=== PATIENT | male | born 1985 | race Two or more races ===

== ENCOUNTER 2021-11-28 15:43 | Outpatient (REF) | payer OTHER, SELFPAY ==
[2021-11-28 16:47] LABS: Hematocrit 37.6 % (42.0-52.0); Hemoglobin 12.3 g/dl (14.0-18.0); Mean Corpuscular HGB Conc 32.7 g/dl (31.0-36.0); Mean Corpuscular Hemoglobin 31.4 pg (27.0-33.0); Mean Corpuscular Volume 95.9 fL (80.0-98.0); Mean Platelet Volume 10.5 fL (9.4-12.4); Platelet Count 236 X10*3/uL (160-400); Red Blood Count 3.92 X10*6/uL (4.60-5.80); Red Cell Distribution Width 11.7 % (11.0-16.0); White Blood Count 7.7 X10*3/uL (4.8-10.8)
[2021-11-28 16:49] LABS: Appearance Urine CLEAR; Color Urine YELLOW; Glucose Urine UA NEG (NEG); Leukocyte Esterase Urine TRACE (NEG); Nitrite Urine NEG (NEG); Specific Gravity - Urine <= 1.005 (1.005-1.025); Urine Blood NEG (NEG); Urine Ketones NEG (NEG); Urine Protein NEG (NEG-TRACE)
[2021-11-28 17:05] LABS: Alanine Aminotransferase 20 U/L (0-40); Alkaline Phosphatase 115 U/L (39-117); Anion Gap 11 (12-20); Aspartate Amino Transferase 19 U/L (5-37); Bilirubin Direct < 0.2 mg/dL (0.0-0.5); Bilirubin Total 0.3 mg/dL (0.0-1.0); Blood Urea Nitrogen 22 mg/dL (9-16); Calcium 9.2 mg/dL (8.4-10.2); Carbon Dioxide 28 mmol/L (22-29); Chloride 106 mmol/L (96-108); Cholesterol 221 mg/dL; Estimated Glomerular Filt Rate 35; Glucose Random 90 mg/dL (60-115); HDL Cholesterol 49 mg/dL; LDL Cholesterol Calculated 133 mg/dl; Potassium 5.2 mmol/L (3.3-5.1); Sodium 140 mmol/L (135-145); Triglycerides 197 mg/dL
[2021-11-28 17:14] LABS: WBC Urine 0-2 /HPF (0-4)
[2021-11-28 17:15] LABS: RBC Urine 0-2 /HPF (0); Squamous Epithelial Cell Urine TRACE /LPF
[2021-11-28 17:16] LABS: Bacteria Urine TRACE /LPF
[2021-11-28 17:27] LABS: Thyroid Stimulating Hormone 0.52 uIU/mL (0.32-4.0)
== END 2021-11-28 15:44 | disposition home or self-care (01) ==
LOC: HO.LAB 15:43
PROVIDERS: PCP Internal Medicine; Visit Provider Internal Medicine
DX: Z00.01 Encounter for general adult medical examination with abnormal findings (principal)
CPT/HCPCS: 36415; 80048; 80061; 80076; 81001; 84443; 85027

== ENCOUNTER 2023-01-12 13:23 | Outpatient (REF) | payer OTHER, SELFPAY ==
[2023-01-12 14:35] LABS: Hematocrit 33.9 % (42.0-52.0); Hemoglobin 11.4 g/dl (14.0-18.0); Mean Corpuscular HGB Conc 33.6 g/dl (31.0-36.0); Mean Corpuscular Hemoglobin 32.2 pg (27.0-33.0); Mean Corpuscular Volume 95.8 fL (80.0-98.0); Mean Platelet Volume 10.7 fL (9.4-12.4); Platelet Count 218 X10*3/uL (160-400); Red Blood Count 3.54 X10*6/uL (4.60-5.80); Red Cell Distribution Width 11.7 % (11.0-16.0); White Blood Count 7.3 X10*3/uL (4.8-10.8)
[2023-01-12 14:59] LABS: Alanine Aminotransferase 14 U/L (0-40); Albumin Level 4.1 g/dL (3.5-5.0); Alkaline Phosphatase 88 U/L (39-117); Anion Gap 12 (12-20); Aspartate Amino Transferase 20 U/L (5-37); Bilirubin Direct < 0.2 mg/dL (0.0-0.5); Bilirubin Total 0.4 mg/dL (0.0-1.0); Blood Urea Nitrogen 24 mg/dL (9-16); Carbon Dioxide 24 mmol/L (22-29); Chloride 109 mmol/L (96-108); Cholesterol 221 mg/dL; Estimated Glomerular Filt Rate 32; Glucose Random 77 mg/dL (60-115); HDL Cholesterol 46 mg/dL; LDL Cholesterol Calculated 144 mg/dl; Potassium 5.6 mmol/L (3.3-5.1); Sodium 139 mmol/L (135-145); Thyroid Stimulating Hormone 0.61 uIU/mL (0.32-4.0); Total Protein 7.1 g/dL (6.5-8.0); Triglycerides 158 mg/dL
== END 2023-01-12 13:24 | disposition home or self-care (01) ==
LOC: HO.LAB 13:23
PROVIDERS: PCP Internal Medicine; Visit Provider Internal Medicine
DX: I12.9 Hypertensive chronic kidney disease with stage 1 through stage 4 chronic kidney disease, or unspecified chronic kidney disease (principal); N18.9 Chronic kidney disease, unspecified
CPT/HCPCS: 36415; 80048; 80061; 80076; 84443; 85027

== ENCOUNTER 2024-02-25 15:01 | Outpatient (AMB) | payer OTHER, SELFPAY ==
--- NOTE | 2024-02-25 15:24 | MHC.PC.OV ---
Vital Signs 02/25/24 15:25 02/25/24 15:29 Height 5 ft 8 in Weight 162 lb 4 oz BMI 24.7 BP 160/80 H 140/70 H Blood Pressure Location Lt brachial Lt brachial Position Sitting Sitting Pulse 75 Pulse Source Pulse Oximeter Pulse Oximetry (%) 98 Oxygen Delivery Method Room Air Intake Visit Reasons: Hypertension Intake Note: Patient is here to follow up on HTN, Chronic Renal Disease. Deputy Fire Marshal Required: No Check Viewer: Not Required per policy Accompanied by: Self / Same As Patient Allergies No Known Allergies Allergy (Verified 02/27/24 07:07) Medication List - Last Reconciled 02/27/24 by Asad Scott MD amlodipine 2.5 mg PO DAILY lisinopril 10 mg PO DAILY patiromer calcium sorbitex (Veltassa) ea PO tolvaptan (polycys kidney dis) (Jynarque) 30 mg PO DAILY PRN tolvaptan (polycys kidney dis) (Jynarque) 15 mg PO DAILY PRN Tobacco use date assessed: 02/25/24 Dental Screening Dental Screen Date: 02/25/24 Did you have a dental visit in the last 12 months?: No Did you have a dental problem in the last 6 months where you did not have access to dental care?: No Was dental information given to patient?: No HPI Hypertension HPI Details 39 yr old male presents to the office to discuss his chronic medical condtions. Kidney disease has not progressed further. Continues to see the retail pharmacy technician in [place]. 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 Gets lab work done at the retail pharmacy technician office. [facility] Medical History (Updated 02/27/24 @ 07:10 by Asad Scott MD) Adult polycystic kidney disease Chronic kidney disease, stage 3 Essential hypertension Surgical History No pertinent past surgical history Family History Father Diabetes PCK (polycystic kidney disease) Mother Medical history unknown Sister PCK (polycystic kidney disease) Social History Housing: Apartment Alcohol intake: current Alcohol intake frequency: holidays/special occasions only Patient Tobacco Use Status: Former Tobacco user e-Cigarette/Vaping Use: Never Used Second Hand Smoke Exposure: Yes service: No Current occupational status: employed 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 1. Little interest or pleasure in doing things: not at all 2. Feeling down, depressed, or hopeless: not at all 3. Trouble falling or staying asleep, or sleeping too much: not at all 4. Feeling tired or having little energy: not at all 5. Poor appetite or overeating: not at all 6. Feeling bad about yourself - or that you are a failure or have let yourself or your family down: not at all 7. Trouble concentrating on things, such as reading the newspaper or watching television: not at all 8. Moving or speaking so slowly that other people could have noticed. Or the opposite - being so fidgety or restless that you have been moving around a lot more than usual: not at all 9. Thoughts that you would be better off or of hurting yourself in some way: not at all Total score: 0 Depression Screening Interpretation: Negative Depression Screening Done: Yes Source: Developed by Drs. Krunal Wang, Gabby Nolasco, Aaron Nguyen and colleagues, with an educational jhonatan from [employer] Thrive Questionnaire Date Thrive assessed: 02/25/24 I am a: Patient What is your living situation today?: I have a steady place to live Within the past 12 months, did the food you bought not last and you didn't have the money to get more?: Never true Within the past 12 months, did you worry whether your food would run out before you got money to buy more?: Never true Do you have trouble paying for medicines?: No Do you have trouble getting transportation to medical appointments?: No Do you have trouble paying your heating and electricity bill?: No Do you have trouble taking care of your child, family member or friend?: No Do you have trouble with day-to-day activities such as bathing, preparing meals, shopping, managing finances, etc.?: No Are you currently unemployed and looking for a job?: No Are you interested in more education?: No Currently or been in a relationship where the following occur: no concerns reported THRIVE Score: 0 AUDIT C Alcohol Use Questionnaire (AUDIT-C) 1. How often do you have a drink containing alcohol?: Monthly or less 2. How many drinks containing alcohol do you have on a typical day when you are drinking?: 1 or 2 Total Score: 1 SHRUTHI-7 AMB Questionnaire SHRUTHI-7 Date SHRUTHI - 7 assessed: 02/25/24 Feeling nervous, anxious, or on edge: 0 = Not at all Not being able to stop or control worryin = Not at all Worrying too much about different things: 0 = Not at all Trouble relaxin = Not at all Being so restless that it is hard to sit still: 0 = Not at all Becoming easily annoyed or irritable: 0 = Not at all Feeling afraid as if something awful might happen: 0 = Not at all Total SHRUTHI-7 score (0-4 normal; 5-9 mild; 10-14 moderate; 15-21 severe): 0 Source: Developed by Drs. Krunal Wang, Gabby Nolasco, Aaron Nguyen and colleagues, with an educational jhonatan from [employer] Physical exam (Primary Care) Vital Signs: Last Vital Signs Pulse 75 02/25/24 15:25 BP 140/70 H 02/25/24 15:29 Pulse Ox 98 02/25/24 15:25 Oxygen Delivery Method Room Air 02/25/24 15:25 Care Plan Goal for BP management: BP in range, continue medications at same dosage. BMI result Body Mass Index 24.7 Tobacco/Smoking Status: Tobacco use Status Tobacco use date assessed 02/25/24 02/25/24 15:30 Patient Tobacco Use Status Former Tobacco user 02/25/24 15:30 e-Cigarette/Vaping Use Never Used 02/25/24 15:30 PHQ-9: PHQ-9 Score PHQ-9: Total score 0 02/25/24 15:35 Depression Screening Interpretation: Negative Thrive Assessment: Date of Thrive Assessment Date Thrive assessed 02/25/24 02/25/24 15:30 Currently or been in a relationship where the following occur: no concerns reported Const General: cooperative and healthy appearing Nutritional Appearance: well nourished Orientation/consciousness: patient oriented x3 Limitations: no limitations HENMT Head: Yes normal to inspection Eyes General: appearance normal, both eyes and all related structures Neck Neck: Yes normal visual inspection Chest Chest palpation & inspection: normal palpation of entire chest wall Resp Effort & Inspection: normal respiratory effort Neuro General: patient oriented x3 Assessment and Plan Assessment & Plan (1) Adult polycystic kidney disease: Code(s): Q61.2 - Polycystic kidney, adult type Plan: Condition is at baseline. Continue follow up with retail pharmacy technician. (2) Chronic kidney disease, stage 3: Code(s): N18.30 - Chronic kidney disease, stage 3 unspecified Plan: 20 minutes spent reviewing this condition. Blood work and nephrology consult not revd. BW done in Dec 2023 shows mild worsening of renal function (3) Essential hypertension: Code(s): I10 - Essential (primary) hypertension Plan: BP is stable. Continue medications at same dosage. Medications: Refilled amlodipine 2.5 mg PO DAILY 90 tabs 1RF Coding Level of Care Code Est Pt Level 4 (08850) Diagnoses Adult polycystic kidney disease Q61.2 Chronic kidney disease, stage 3 N18.30 Essential hypertension I10
[2024-02-25 15:25] VITALS: BP 160/80; PULSE 75; O2SAT 98; BMI 24.7
[2024-02-25 15:29] VITALS: BP 140/70
== END 2024-02-25 16:33 | disposition home or self-care (01) ==
PROVIDERS: PCP Internal Medicine; Visit Provider Internal Medicine
DX: Q61.2 Polycystic kidney, adult type (principal); I12.9 Hypertensive chronic kidney disease with stage 1 through stage 4 chronic kidney disease, or unspecified chronic kidney disease; N18.30 Chronic kidney disease, stage 3 unspecified
CPT/HCPCS: 99214

== ENCOUNTER 2024-04-21 07:31 | Outpatient (REF) | payer OTHER, SELFPAY ==
[2024-04-21 11:22] LABS: Hematocrit 33.2 % (42.0-52.0); Hemoglobin 11.3 g/dl (14.0-18.0); Mean Corpuscular Hemoglobin 32.8 pg (27.0-33.0); Mean Corpuscular Volume 96.5 fL (80.0-98.0); Mean Platelet Volume 10.6 fL (9.4-12.4); Platelet Count 211 X10*3/uL (160-400); Red Blood Count 3.44 X10*6/uL (4.60-5.80); Red Cell Distribution Width 12.2 % (11.0-16.0)
[2024-04-21 11:33] LABS: Alanine Aminotransferase 11 U/L (0-40); Albumin Level 3.9 g/dL (3.5-5.0); Alkaline Phosphatase 131 U/L (39-117); Anion Gap 9 (12-20); Aspartate Amino Transferase 17 U/L (5-37); Bilirubin Direct 0.1 mg/dL (0.0-0.5); Bilirubin Total 0.3 mg/dL (0.0-1.0); Blood Urea Nitrogen 33 mg/dL (9-16); Calcium 9.1 mg/dL (8.4-10.2); Carbon Dioxide 22 mmol/L (22-29); Chloride 115 mmol/L (96-108); Cholesterol 198 mg/dL (<200); Estimated Glomerular Filt Rate 29; Glucose Random 102 mg/dL (60-115); HDL Cholesterol 40 mg/dL (>40); LDL Cholesterol Calculated 120 mg/dL (<100); Sodium 141 mmol/L (135-145); Total Protein 7.1 g/dL (6.5-8.0); Triglycerides 192 mg/dL (<150)
[2024-04-21 11:35] LABS: Appearance Urine Clear; Color Urine Yellow; Glucose Urine UA Negative (Negative); Leukocyte Esterase Urine Small (1+) (Negative); Nitrite Urine Negative (Negative); Specific Gravity - Urine <= 1.005 (1.005-1.025); UMIC TRIGGER UA YES; Urine Blood Negative (Negative); Urine Ketones Negative (Negative); Urine Protein Negative (Neg-Trace)
[2024-04-21 11:40] LABS: Thyroid Stimulating Hormone 0.59 uIU/mL (0.32-4.0)
[2024-04-21 11:48] LABS: Bacteria Urine None Seen (None Seen); Hyaline Casts Urine 0-2 /LPF (0-2); RBC Urine 0-2 /HPF (0-2); Squamous Epithelial Cell Urine 0-2 /HPF (0-2); WBC Urine 0-5 /HPF (0-5)
== END 2024-04-21 07:32 | disposition home or self-care (01) ==
LOC: HO.10HDL 07:31
PROVIDERS: Visit Provider Internal Medicine
DX: I10 Essential (primary) hypertension (principal)
CPT/HCPCS: 36415; 80048; 80061; 80076; 81001; 84443; 85027

== ENCOUNTER 2024-09-08 15:05 | Outpatient (AMB) | payer OTHER, SELFPAY ==
--- NOTE | 2024-09-08 15:20 | MHC.PC.OV ---
Vital Signs 09/08/24 15:21 Height 5 ft 8 in Weight 155 lb BMI 23.6 BP 130/74 Blood Pressure Location Lt brachial Position Sitting Pulse 60 Pulse Source Pulse Oximeter Pulse Oximetry (%) 99 Oxygen Delivery Method Room Air Intake Visit Reasons: 6mth f/u Intake Note: Patient is here to follow up on HTN, CKD. Pt decline flu shot today. Lathe Turner Required: No Eyewear Consultant: Not Required per policy Accompanied by: Self / Same As Patient Allergies No Known Allergies Allergy (Verified 09/09/24 04:34) Medication List - Last Reconciled 09/09/24 by Asad Scott MD amlodipine 2.5 mg PO DAILY lisinopril 10 mg PO DAILY patiromer calcium sorbitex (Veltassa) ea PO tolvaptan (polycys kidney dis) (Jynarque) 30 mg PO DAILY PRN tolvaptan (polycys kidney dis) (Jynarque) 15 mg PO DAILY PRN Tobacco use date assessed: 09/08/24 Dental Screening Dental Screen Date: 02/25/24 HPI 6mth f/u HPI Details 39-year-old male presents to the office for a routine visit. He has chronic kidney disease and hypertension. His lab work is done at the cytotechnologist/cytology supervisor's office and is at baseline and stable. Compliant with medications. Patient is able to function and do activities of daily living. He is able to keep a full-time job. 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 Krunal Wang, Gabby Nolasco, Aaron Nguyen and colleagues, with an educational jhonatan from [employer]. Physical exam (Primary Care) Vital Signs: Last Vital Signs Pulse 60 09/08/24 15:21 BP 130/74 09/08/24 15:21 Pulse Ox 99 09/08/24 15:21 Oxygen Delivery Method Room Air 09/08/24 15:21 BMI result Body Mass Index 23.6 Tobacco/Smoking Status: Tobacco use Status Tobacco use date assessed 09/08/24 09/08/24 15:32 Patient Tobacco Use Status Former Tobacco user 09/08/24 15:32 e-Cigarette/Vaping Use Never Used 09/08/24 15:32 Thrive Assessment: Date of Thrive Assessment Date Thrive assessed 02/25/24 09/08/24 15:32 Const General: cooperative and healthy appearing Nutritional Appearance: well nourished Orientation/consciousness: patient oriented x3 Limitations: no limitations HENMT Head: Yes normal to inspection Eyes General: appearance normal, both eyes and all related structures Neck Neck: Yes normal visual inspection Chest Chest palpation & inspection: normal palpation of entire chest wall Resp Effort & Inspection: normal respiratory effort Neuro General: patient oriented x3 Coding Level of Care Code Est Pt Level 3 (95473) Complex EM visit Add On G2211 Diagnoses Adult polycystic kidney disease Q61.2 Chronic kidney disease, stage 3 N18.30 Essential hypertension I10 Assessment & Plan Assessment & Plan (1) Adult polycystic kidney disease: Code(s): Q61.2 - Polycystic kidney, adult type Category: Medical Plan: Condition is stable. Follow-up with a cytotechnologist/cytology supervisor. Continue medications prescribed by the cytotechnologist/cytology supervisor. (2) Chronic kidney disease, stage 3: Code(s): N18.30 - Chronic kidney disease, stage 3 unspecified Category: Medical Plan: Creatinine and GFR is stable. (3) Essential hypertension: Code(s): I10 - Essential (primary) hypertension Category: Medical Plan: Blood pressure is in range. Continue medications at same dosage.
[2024-09-08 15:21] VITALS: BP 130/74; PULSE 60; O2SAT 99; BMI 23.6
== END 2024-09-08 15:54 | disposition home or self-care (01) ==
PROVIDERS: PCP Internal Medicine; Visit Provider Internal Medicine
DX: Q61.2 Polycystic kidney, adult type (principal); N18.30 Chronic kidney disease, stage 3 unspecified; I10 Essential (primary) hypertension

== ENCOUNTER → 2024-09-08 15:05 | Outpatient (BNVA) | payer OTHER, SELFPAY | PROVIDERS: PCP Internal Medicine; Visit Provider Internal Medicine ==

== ENCOUNTER 2024-12-26 14:25 | Outpatient (AMB) | payer OTHER, SELFPAY ==
--- NOTE | 2024-12-26 14:48 | MHC.OFFWIV ---
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 Patient Tobacco Use Status: Former Tobacco user Allergies No Known Allergies Allergy (Verified 12/26/24 14:52) Do you need a note to return to daycare/school/sports/work: Yes HPI HPI Comments History of Present Illness Details 39 y/o male patient who presents to the walk in clinic with c/o URI symptoms for 2 days now. Reports fevers, chills, body aches, headaches and cough. [facility] Medical History (Updated 12/26/24 @ 15:18 by Ana Rosa Silva NP) Cough Acute respiratory disease Adult polycystic kidney disease Chronic kidney disease, stage 3 Essential hypertension Surgical History No pertinent past surgical history Family History Father Diabetes PCK (polycystic kidney disease) Mother Medical history unknown Sister PCK (polycystic kidney disease) Social History Housing: Apartment Alcohol intake: current Alcohol intake frequency: holidays/special occasions only Patient Tobacco Use Status: Former Tobacco user e-Cigarette/Vaping Use: Never Used Second Hand Smoke Exposure: Yes service: No Current occupational status: employed 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 Cognitive needs: No Hearing needs: No Vision needs: No Review of Systems Const All systems reviewed & are unremarkable except as noted in HPI and below Physical Exam Vital Signs: Last Vital Signs Temp 100.6 F H 12/26/24 14:51 Pulse 80 12/26/24 14:51 BP 130/90 H 12/26/24 14:51 Pulse Ox 98 12/26/24 14:51 Oxygen Delivery Method Room Air 12/26/24 14:51 Const General: cooperative, no acute distress, ill appearing and lethargic; No comfortable Nutritional Appearance: thin Orientation/consciousness: patient oriented x3 and lethargic HEENT Head: Yes normocephalic Ears: external ears normal and TM abnormal obstructed by cerumen bilateral General nose exam: Nasal discharge present Face and sinus: Yes sinuses nontender Mouth: moist mucous membranes Throat: Yes uvula midline Resp Effort & Inspection: normal respiratory effort and able to speak in complete sentences Auscultation: clear to auscultation bilaterally, no crackles, no rales, no rhonchi and no wheezes Cardio Heart sounds: S1 normal heart sound present and S2 normal heart sound present Neuro General: patient oriented x3 Assessment & Plan Assessment & Plan (1) Acute respiratory disease: Code(s): J06.9 - Acute upper respiratory infection, unspecified Plan: Ordered SARs Ordered Cough medicine. (2) Cough: Code(s): R05.9 - Cough, unspecified Qualifiers: Cough type: acute Qualified Code(s): R05.1 - Acute cough Plan: Ordered SARs Ordered Cough medicine. Orders: Orders SARS-CoV2/FLU/RSV Today J06.9 - Acute upper respiratory infection, unspecified Medications: New acetaminophen 1,000 mg (2 x 500 mg) PO Q6H PRN 30 caps 0RF fever J06.9 - Acute upper respiratory infection, unspecified oseltamivir (Tamiflu) 75 mg PO BID 5 days 10 caps 0RF J06.9 - Acute upper respiratory infection, unspecified dextromethorphan polistirex ER (Delsym 12 hour) 10 mL PO Q12H 89 mL 0RF cough R05.9 - Cough, unspecified Coding Level of Care Code Est Pt Level 4 (30368) Diagnoses Acute respiratory disease J06.9 Acute cough R05.1 Cough type: acute Time Spent (min) 20
[2024-12-26 14:51] VITALS: BP 130/90; PULSE 80; TEMP 38.1; O2SAT 98
== END 2024-12-26 15:20 | disposition home or self-care (01) ==
PROVIDERS: PCP Internal Medicine; Visit Provider Nurse Practitioner Family
DX: J06.9 Acute upper respiratory infection, unspecified (principal); R05.1 Acute cough

== ENCOUNTER 2024-12-26 14:25 | Outpatient (REF) | payer OTHER, SELFPAY ==
--- OUTSIDE RECORDS SUMMARY | 2024-12-26 16:19 | XMS_ITS | Encounter Summary ---
Author Organization [facility] Address [address] [facility] [address] [place] [address] Phone Care Team Providers Care Private Branch Exchange Service Adviser Name Role Phone Asad Scott MD Primary Care Provider + Reason for Visit * Reason Comments Med Refill Encounter Details Date Type Department Care Team (Late Contact Info) Description 06/30/2022 Refill [facility] [address] [facility] [address] [place] [address] Buster Cordero MD [address] [phone] Social History Tobacco Use Types Packs/Day Years Used Date Smoking Tobacco: Former Cigarettes Q uit: 11/16/2012 Smokeless Tobacco: Never Comments:Smoking History Inf o:Every day Alcohol Use Standard Drinks/Week Comments Yes 0 (1 standard drink = 0.6 oz pure alcohol) Alcoholic Drinks/day: Occasional social drink Sex and Gender Information Value Date Recorded Sex Assigned at Not on file Legal Sex Male 5:19 PM EST Gender Identity Not on file Sexual Orientation Not on file documented as of this encounter Plan of Treatment Upcoming Encounters Date Type Department Care Team (Late st Contact Info) Description 04/04/2025 4:15 PM EDT Office Visit [facility] [address] [address] Buster Cordero MD [address] [phone] documented as of this encounter Visit Diagnoses Not on filedocumented in this encounter Care Teams Private Branch Exchange Service Adviser Relationship Specialty Start Date End Date Asad Scott MD [address] , [address], [place] [phone] PCP - General Internal Medicine 06/24/22 documented as of this encounter
--- OUTSIDE RECORDS SUMMARY | 2024-12-26 16:19 | XMS_ITS | Clinical Summary ---
Author Organization [facility] Address [address] [place] [phone] Phone Care Team Providers Care Electrotyper Helper Name Role Phone Asad Scott MD Primary Care Provider + Allergies No known active allergies Medications Blood Pressure Monitor kit 1 kit 1 (one) time 9 Active amLODIPine (NORVASC) 2.5 MG tabletIndications: Essential hypertension Take 1 tablet (2.5 mg total) by mouth 1 (one) time each day 90 tablet 3 2 Active lisinopril 10 MG tablet TAKE 1 TABLET BY MOUTH EVERY DAY 90 tablet 1 2 Active Patiromer Sorbitex Calcium 8.4 g pack Take 8.4 g by mouth 3 (three) times a week 90 each 3 2 Active sodium bicarbonate 650 MG tablet Take 1 tablet (650 mg total) by mouth in the morning and 1 tablet (650 mg total) at noon and 1 tablet (650 mg total) in the evening and 1 tablet (650 mg total) before bedtime. 120 tablet 11 4 02/02/20 25 Active Sodium Zirconium Cyclosilicate (Lokelma) 10 g pack Take 10 g by mouth in the morning. 90 each 1 4 01/02/20 25 Active Jynarque 30 MG tablet Take 30mg tablet along with 15mg tablet by mouth for total of 45mg daily 30 tablet 5 Active Jynarque 15 MG tablet Take 15mg tablet by mouth along with 30 mg for a total of 45 mg daily 30 tablet 5 Active Active Problems Problem Noted Date Diagnosed Date Chronic kidney disease, stage 4 (severe) 024 Stage 3b chronic kidney disease 06/24/2022 Essential hypertension 05/13/2021 Essential hypertension 01/18/2021 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 Adult polycystic kidney 01/18/2021 Stage 3a chronic kidney disease 01/18/2021 Encounters Date Type Department Care Team Description 11/22/2024 Refill [facility] [address] [address] Buster Cordero MD 10/11/2024 Telephone [facility] [address] [phone] Hillary Calloway [place] 10/11/2024 Refill [facility] [address] [address] Buster Cordero MD 10/04/2024 2:15 PM EST Office Visit [facility] [address] [phone] Buster Cordero MD Chronic kidney disease, stage 4 (severe) (HCC) (Primary Dx); Adult polycystic kidney; Essential hypertension from Last 3 Months Immunizations Name Administration Dates Next Due Influenza Split High Dose Preservative Free IM 0 07/30/2016 Family History Medical History Relation Comments Hypertension Father Kidney disease Father polycystic kidne y disease Relation Status Comments Father Alive Mother Alive Social History Tobacco Use Types Packs/Day Years [...] on file Sexual Orientation Not on file Last Filed Vital Signs Vital Sign Reading Time Taken Comments Blood Pressure 128/70 10/04/2024 2:01 PM EST Pulse 71 02/02/2024 1:57 PM EDT Temperature - - Respiratory Rate - - Oxygen Saturation 98% 02/02/2024 1:57 PM EDT Inhaled Oxygen Concentration - - Weight 68.9 kg (152 lb) 10/04/2024 2:01 PM EST Height 175.3 cm (5' 9 ) 04/30/2021 3:32 PM EDT Body Mass Index 22.45 04/30/2021 3:32 PM EDT Plan of Treatment Upcoming Encounters Date Type Department Care Team (Late st Contact Info) Description 04/04/2025 4:15 PM EDT [facility] [address] [facility] [address] [place] [address] Buster Cordero MD [address] [phone] Health Maintenance Due Date Last Done Comments Pneumococcal Vaccine: Pediat rics (0 to 5 Years) and At-Risk Patients (6 to 64 Years) (1 of 2 - PCV) 02/04/1990 Hepatitis B Vaccine (1 of 3 - 19+ 3-dose series) 02/04 Influenza Vaccine (#1) 2024 07/30/2016 Insurance [facility] Care Teams Electrotyper Helper Relationship Specialty Start Date End Date Asad Scott MD [address] , [address] [phone] PCP - General Internal Medicine 06/24/22
--- OUTSIDE RECORDS SUMMARY | 2024-12-26 16:19 | XMS_ITS | Encounter Summary ---
Author Organization [facility] Address [address] [address] Phone Care Team Providers Care Trial Judge Name Role Phone Asad Scott MD Primary Care Provider + Encounter Details Date Type Department Care Team (Latest Contact Info) Description 05/02/2024 Office Communication [facility] [address] [address] Buster Cordero MD [address] [phone] Stage 3b chronic kidney disease (HCC) (Primary Dx); Autosomal dominant polycystic kidney disease Social History Tobacco Use Types Packs/Day Years [...] on file documented as of this encounter Miscellaneous Notes * Telephone Encounter - Buster Cordero MD - 05/02/2024 2:31 PM EDT Pls call and tell he needs labs documented in this encounter Plan of Treatment Upcoming Encounters Date Type Department Care Team (Late st Contact Info) Description 04/04/2025 4:15 PM EDT Office Visit [facility] [address] [address] Buster Cordero MD [address] [phone] Scheduled Orders Name Type Priority Associated Diagnoses Orde r Schedule Renal function panel Lab Routine Stage 3b chronic kidney disease (HCC) Autosomal dominant polycystic kidney disease Expected: 05/09/2024, Expires: 06/01/2025 AST Lab Routine Stage 3b chronic kidney disease (HCC) Autosomal dominant polycystic kidney disease Expected: 05/09/2024, Expires: 06/01/2025 ALT Lab Routine Stage 3b chronic kidney disease (HCC) Autosomal dominant polycystic kidney disease Expected: 05/09/2024, Expires: 06/01/2025 Alkaline phosphatase Lab Routine Stage 3b chronic kidney disease (HCC) Autosomal dominant polycystic kidney disease Expected: 05/09/2024, Expires: 06/01/2025 Bilirubin, total and direct Lab Routine Stage 3b chronic kidney disease (HCC) Autosomal dominant polycystic kidney disease Expected: 05/09/2024, Expires: 06/01/2025 documented as of this encounter Visit Diagnoses Diagnosis Stage 3b chronic kidney disease (HCC)- Primary Autosomal dominant polycystic kidney disease documented in this encounter Care Teams Trial Judge Relationship Specialty Start Date End Date Asad Scott MD [address] [facility] [address] [place] [address] PCP - General Internal Medicine 06/24/22 documented as of this encounter
[2024-12-26 18:01] LABS: Influenza A PCR POSITIVE (Negative); Influenza B PCR NEGATIVE (Negative); Resp Syncy Virus RNA Qual PCR NEGATIVE (Negative); SARS COV2 PCR INHOUSE NEGATIVE (Negative)
== END 2024-12-26 14:26 | disposition home or self-care (01) ==
LOC: HO.LAB 14:25
PROVIDERS: PCP Internal Medicine; Visit Provider Nurse Practitioner Family
DX: J06.9 Acute upper respiratory infection, unspecified (principal); Z13.83 Encounter for screening for respiratory disorder NEC
CPT/HCPCS: 0241U

== ENCOUNTER 2025-03-09 13:38 | Outpatient (AMB) | payer OTHER, SELFPAY ==
--- NOTE | 2025-03-09 13:48 | A.OFFPC_ITS ---
Vital Signs 03/09/25 13:49 Height 5 ft 8 in Weight 150 lb 8 oz BMI 22.9 BP 102/68 Blood Pressure Location Lt brachial Position Sitting Pulse 84 Pulse Source Pulse Oximeter Temp 97.5 F Temp Source Temporal Artery Scan Pulse Oximetry (%) 99 Oxygen Delivery Method Room Air Intake Visit Reasons: 6 month f/u Intake Note: Patient is here to follow up on CKD, HTN. Cmm Programmer Required: No Electric Distribution Engineer: Not Required per policy Accompanied by: Self / Same As Patient Allergies No Known Allergies Allergy (Verified 03/09/25 14:24) Tobacco use date assessed: 03/09/25 Dental Screening Dental Screen Date: 03/09/25 Did you have a dental visit in the last 12 months?: No Did you have a dental problem in the last 6 months where you did not have access to dental care?: No Was dental information given to patient?: No HPI 6 month f/u HPI Details Returns for a six month follow up. Kidney disease is slowly progressing. Not ready for dialysis yet. Occ tingling sensation in the feet in the past week only. Able to function and do all ADL's. [facility] Medical History Cough Acute respiratory disease Adult polycystic kidney disease Chronic kidney disease, stage 3 Essential hypertension Surgical History No pertinent past surgical history Family History Father Diabetes PCK (polycystic kidney disease) Mother Medical history unknown Sister PCK (polycystic kidney disease) Social History Housing: Apartment Alcohol intake: current Alcohol intake frequency: holidays/special occasions only Patient Tobacco Use Status: Former Tobacco user e-Cigarette/Vaping Use: Never Used Second Hand Smoke Exposure: Yes service: No Current occupational status: employed 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 1. Little interest or pleasure in doing things: not at all 2. Feeling down, depressed, or hopeless: not at all 3. Trouble falling or staying asleep, or sleeping too much: not at all 4. Feeling tired or having little energy: not at all 5. Poor appetite or overeating: not at all 6. Feeling bad about yourself - or that you are a failure or have let yourself or your family down: not at all 7. Trouble concentrating on things, such as reading the newspaper or watching television: not at all 8. Moving or speaking so slowly that other people could have noticed. Or the opposite - being so fidgety or restless that you have been moving around a lot more than usual: not at all 9. Thoughts that you would be better off or of hurting yourself in some way: not at all Total score: 0 Depression Screening Interpretation: Negative Depression Screening Done: Yes Source: Developed by Drs. Krunal Wang, Gabby Nolasco, Aaron Nguyen and colleagues, with an educational jhonatan from [employer]. Thrive Questionnaire Date Thrive assessed: 03/09/25 I am a: Patient What is your living situation today?: I have a steady place to live Within the past 12 months, did the food you bought not last and you didn't have the money to get more?: Never true Within the past 12 months, did you worry whether your food would run out before you got money to buy more?: Never true Do you have trouble paying for medicines?: No Do you have trouble getting transportation to medical appointments?: No Do you have trouble paying your heating and electricity bill?: No Do you have trouble taking care of your child, family member or friend?: No Do you have trouble with day-to-day activities such as bathing, preparing meals, shopping, managing finances, etc.?: No Are you currently unemployed and looking for a job?: No Are you interested in more education?: No Please select the resources that you would like help with: None Currently or been in a relationship where the following occur: No concerns reported THRIVE Score: 0 AUDIT C Alcohol Use Questionnaire (AUDIT-C) 2. How many drinks containing alcohol do you have on a typical day when you are drinking?: 1 or 2 3. How often do you have six or more drinks on one occasion?: Less than monthly Total Score: 1 SHRUTHI-7 AMB Questionnaire SHRUTHI-7 Date SHRUTHI - 7 assessed: 03/09/25 Feeling nervous, anxious, or on edge: 0 = Not at all Not being able to stop or control worryin = Not at all Worrying too much about different things: 0 = Not at all Trouble relaxin = Not at all Being so restless that it is hard to sit still: 0 = Not at all Becoming easily annoyed or irritable: 0 = Not at all Feeling afraid as if something awful might happen: 0 = Not at all Total SHRUTHI-7 score (0-4 normal; 5-9 mild; 10-14 moderate; 15-21 severe): 0 Source: Developed by Drs. Krunal Wang, Gabby Nolasco, Aaron Nguyen and colleagues, with an educational jhonatan from [employer]. Physical exam (Primary Care) Vital Signs: Last Vital Signs Temp 97.5 F 03/09/25 13:49 Pulse 84 03/09/25 13:49 BP 102/68 03/09/25 13:49 Pulse Ox 99 03/09/25 13:49 Oxygen Delivery Method Room Air 03/09/25 13:49 Care Plan Goal for BP management: BP in range BMI result Body Mass Index 22.9 Tobacco/Smoking Status: Tobacco use Status Tobacco use date assessed 03/09/25 03/09/25 13:54 Patient Tobacco Use Status Former Tobacco user 03/09/25 13:54 e-Cigarette/Vaping Use Never Used 03/09/25 13:54 PHQ-9: PHQ-9 Score PHQ-9: Total score 0 03/09/25 13:54 Depression Screening Interpretation: Negative Thrive Assessment: Date of Thrive Assessment Date Thrive assessed 03/09/25 03/09/25 13:54 Currently or been in a relationship where the following occur: No concerns reported Const General: cooperative and healthy appearing Nutritional Appearance: well nourished Orientation/consciousness: patient oriented x3 Limitations: no limitations HENMT Head: Yes normal to inspection Eyes General: appearance normal, both eyes and all related structures Neck Neck: Yes normal visual inspection Chest Chest palpation & inspection: normal palpation of entire chest wall Resp Effort & Inspection: normal respiratory effort Neuro General: patient oriented x3 Coding Level of Care Code Est Pt Level 4 (82010) Complex EM visit Add On G2211 Diagnoses Essential hypertension I10 Chronic kidney disease, stage 3 N18.30 Assessment & Plan Assessment & Plan (1) Essential hypertension: Code(s): I10 - Essential (primary) hypertension Category: Medical Plan: Blood pressure is in range. continue meds at same dosage. (2) Chronic kidney disease, stage 3: Code(s): N18.30 - Chronic kidney disease, stage 3 unspecified Category: Medical Plan: Polycystic kidney disease. Sees the [facility] on a regular basis. Continue meds Orders: Orders Lipid Panel Today I10 - Essential (primary) hypertension, N18.30 - Chronic kidney disease, stage 3 unspecified Hemoglobin A1c Today I10 - Essential (primary) hypertension, N18.30 - Chronic kidney disease, stage 3 unspecified Basic Metabolic Panel Today I10 - Essential (primary) hypertension, N18.30 - Chronic kidney disease, stage 3 unspecified Complete Blood Count no Diff Today I10 - Essential (primary) hypertension, N18.30 - Chronic kidney disease, stage 3 unspecified Liver Panel Today I10 - Essential (primary) hypertension, N18.30 - Chronic kidney disease, stage 3 unspecified Thyroid Stimulating Hormone Today I10 - Essential (primary) hypertension, N18.30 - Chronic kidney disease, stage 3 unspecified UA and rflx microscopic Today I10 - Essential (primary) hypertension, N18.30 - Chronic kidney disease, stage 3 unspecified
[2025-03-09 13:49] VITALS: BP 102/68; PULSE 84; TEMP 36.4; O2SAT 99; BMI 22.9
--- OUTSIDE RECORDS SUMMARY | 2025-03-09 15:59 | XMS_ITS | Clinical Summary ---
Author Organization [facility] Address [address] [place] [phone] Phone Care Team Providers Care Meat Processor Name Role Phone Asad Scott MD Primary Care Provider + Allergies No known active allergies Medications Blood Pressure Monitor kit 1 kit 1 (one) time 9 Active amLODIPine (NORVASC) 2.5 MG tabletIndications :Essential hypertension Take 1 tablet (2.5 mg total) by mouth 1 (one) time each day 90 tablet 3 2 Active lisinopril 10 MG tablet TAKE 1 TABLET BY MOUTH EVERY DAY 90 tablet 1 2 Active Patiromer Sorbitex Calcium 8.4 g pack Take 8.4 g by mouth 3 (three) times a week 90 each 3 2 Active Jynarque 30 MG tablet Take 30mg tablet along with 15mg tablet (45mg total) by mouth daily. 30 tablet 4 5 Active Jynarque 15 MG tablet Take 15mg tablet along with 30mg tablet (45mg total) by mouth daily. 30 tablet 4 5 Active cholecalciferol (VITAMIN D-3) 250 MCG (36695 UT) capsule Take 1 capsule (10,000 Units total) by mouth every 7 (seven) days 12 capsule 1 5 07/13/20 25 Active Active Problems Problem Noted Date Diagnosed Date Chronic kidney disease, stage 4 (severe) 024 Stage 3b chronic kidney disease 06/24/2022 Essential hypertension 05/13/2021 Essential hypertension 01/18/2021 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 Adult polycystic kidney 01/18/2021 Stage 3a chronic kidney disease 01/18/2021 Encounters Date Type Department Care Team Description 01/31/2025 Refill [facility] [address] [place] [phone] Marcelo Naylor MD 01/26/2025 Refill [facility] [address] [place] [phone] Uzma Lam 01/26/2025 Refill [facility] [address] [phone] Marcelo Naylor MD 01/17/2025 Telephone [facility] [address] [phone] Marcelo Naylor MD 01/16/2025 Refill [facility] [place] [address] [place] [phone] Marcelo Naylor MD from Last 3 Months Immunizations Immunization Administration Dates Next Due Influenza Split High [...] Visit [facility] [address] [phone] Buster Cordero MD [address] [address] Health Maintenance Due Date Last Done Comments Hepatitis B Vaccine (1 of 3 - 19+ 3-dose series) 02/04 Pneumococcal Vaccine: Peds ( 0 to 5 Years) and At-Risk Patients (6 to 49 Years) (1 of 2 - PCV) 02/04/2003 Influenza Vaccine (Season Ended) 2025 07/30/20 16 Procedures Procedure Name Priority Date/Time Associated Diagnosis Comments BASIC METABOLIC PANEL Routine 01/19/2025 2:05 PM EST Adult polycystic kidney HEPATIC FUNCTION PANEL Routine 01/19/2025 2:05 PM EST Adult polycystic kidney PTH, INTACT Routine 01/19/2025 2:00 PM EST MAGNESIUM Routine 01/19/2025 2:00 PM EST ALT Routine 01/19/2025 2:00 PM EST AST Routine 01/19/2025 2:00 PM EST ALKALINE PHOSPHATASE Routine 01/19/2025 2:00 PM EST VITAMIN D 25 HYDROXY Routine 01/19/2025 2:00 PM EST URINE ALBUMIN / CREATININE RATIO Routine 01/19/2025 2:00 PM EST PROTEIN / CREATININE RATIO, URINE Routine 01/19/2025 2:00 PM EST BILIRUBIN, TOTAL AND DIRECT Routine 01/19/2025 2:00 PM EST CBC Routine 01/19/2025 2:00 PM EST RENAL FUNCTION PANEL Routine 01/19/2025 2:00 PM EST URINALYSIS WITH MICROSCOPIC Routine 01/19/2025 2:00 PM EST MICROSCOPIC EXAMINATION - DO NOT USE Routine 01/19/2025 2:00 PM EST from Last 3 Months Results * Hepatic Function Panel (01/19/2025 2:05 PM EST) Pathologist [facility] Total Protein 6.4 6.0 - 8.5 g/dL [facility] Albumin 4.1 4.1 - 5.1 g/dL [facility] Total Bilirubin 0.2 0.0 - 1.2 mg/dL [facility] Alkaline Phosphatase 119 44 - 121 IU/L [facility] AST (SGOT) 15 0 - 40 IU/L [facility] ALT (SGPT) 6 0 - 44 IU/L [facility] Bilirubin, Direct 0.08 0.00 - 0.40 mg/dL [facility] Blood (Blood, Venous) 01/19/2025 2:05 PM EST 01/19/2025 us Marcelo Naylor MD LAB BLOOD ORDERABLES Final Result [facility] [address] [place] [address] * (ABNORMAL) Basic Metabolic Panel (01/19/2025 2:05 PM EST) Pathologist [facility] Glucose 84 70 - 99 mg/dL [facility] BUN 41(H) 6 - 24 mg/dL [facility] Creatinine 3.16(H) 0.76 - 1.27 mg/dL [facility] eGFR CKD-EPI CR 2020 25(L) >59 mL/min/1.7 3 [facility] BUN/Creatinine Ratio 13 9 - 20 [facility] Sodium 140 134 - 144 mmol/L [facility] Potassium 5.0 3.5 - 5.2 mmol/L [facility] Chloride 107(H) 96 - 106 mmol/L [facility] Bicarbonate (CO2) 16(L) 20 - 29 mmol/L [facility] Calcium 8.7 8.7 - 10.2 mg/dL [facility] Blood (Blood, Venous) 01/19/2025 2:05 PM EST 01/19/2025 us Marcelo Naylor MD LAB BLOOD ORDERABLES Final Result [facility] [address] [place] [address] * Microscopic Examination (01/19/2025 2:00 PM EST) WBC, Urine None seen 0 - 5 /hpf [facility] RBC, Urine None seen 0 - 2 /hpf [facility] Squamous Epithelial, Urine None seen 0 - 10 /hpf [facility] Casts None seen None seen /lpf [facility] Bacteria, Urine None seen None seen/Few [facility] 01/19/2025 2:00 PM EST 01/19/2025 Buster Cordero MD LAB MICROBIOLOGY - GENERAL OR DERABLES Final Result Performing Organization Address [facility] de Phone Number [facility] [address] [place] [address] * Protein, Total, Random Urine w/Creatinine (Protein/Creat Ratio) (01/19/2025 2:00 PM EST) Creatinine, Ur 42.8 Not Estab. mg/dL [facility] Protein, Ur 5.9 Not Estab. mg/dL [facility] Urine Protein/Creatin ine Ratio 138 0 - 200 mg/g creat [facility] 01/19/2025 2:00 PM EST 01/19/2025 Buster Cordero MD LAB URINE ORDERABLES Final Re sult Performing Organization Address [facility] de Phone Number [facility] [address] [place] [address] * (ABNORMAL) Urine Albumin / Creatinine Ratio (01/19/2025 2:00 PM EST) Albumin, Urine 22.6 Not Estab. ug/mL [facility] Albumin/Creatin ine Ratio 53(H) 0 - 29 mg/g creat [facility] Comment: ? Normal: ?0 - ??29 ? Moderately increased: 30 - 300 ? Severely increased: ? >300 01/19/2025 2:00 PM EST 01/19/2025 Buster Cordero MD LAB URINE ORDERABLES Final Re sult Performing Organization Address [facility] Co de Phone Number [facility] [address] [place] [address] * (ABNORMAL) Vitamin D 25 Hydroxy (01/19/2025 2:00 PM EST) Vitamin D, 25-OH, Total 12.0(L) 30.0 - 100.0 ng/mL [facility] Comment: Vitamin D deficiency has been defined by the [place] of [employer] and an Endocrine Society practice guideline as a level of serum 25-OH vitamin D less than 20 ng/mL (1,2). The Endocrine Society went on to further define vitamin D insufficiency as a level between 21 and 29 ng/mL (2). 1. IOM ([place] of [employer]). 2010. Dietary reference ?? intakes for calcium and D. [place]: The ?? National Academies Press. 2. Libia MF, Narayan NC, Mak KELLY, et al. ?? Evaluation, treatment, and prevention of vitamin D ?? deficiency: an Endocrine Society clinical practice ?? guideline. JCEM. 2010; 96(7):1911-30. 01/19/2025 2:00 PM EST 01/19/2025 Buster Cordero MD LAB BLOOD ORDERABLES Final Re sult Performing Organization Address City/[facility]/ZIP Co de Phone Number [facility] [address] [place] [address] * Urinalysis with microscopic (01/19/2025 2:00 PM EST) Specific [place], Urine 1.007 1.005 - 1.030 [facility] pH Urine 6.5 5.0 - 7.5 [facility] Color, Urine Yellow Yellow [facility] Appearance Urine Clear Clear [facility] WBC Esterase Urine Negative Negative [facility] [phone] Protein, Ur Negative Negative/Tra ce [facility] Glucose, Ur Negative Negative [facility] [phone] Ketones, Urine Negative Negative [facility] Blood Urine Negative Negative [facility] Bilirubin Urine Negative Negative [facility] [phone] Urobilinogen Urine 0.2 0.2 - 1.0 mg/dL [facility] Nitrite, Urine Negative Negative [facility] Microscopic Examination Comment [facility] Comment:Microscopic follows if indicated. Other Microsc. Observations See below: [facility] Comment:Microscopic was charlie cated and was performed. 01/19/2025 2:00 PM EST 01/19/2025 us Buster Cordero MD LAB URINE ORDERABLES Final Re sult [facility] [address] [place] [address] * (ABNORMAL) CBC (01/19/2025 2:00 PM EST) WBC 5.9 3.4 - 10.8 x10E3/uL [facility] RBC 3.27(L) 4.14 - 5.80 x10E6/uL [facility] Hemoglobin 10.5(L) 13.0 - 17.7 g/dL [facility] Hematocrit 31.5(L) 37.5 - 51.0 % [facility] MCV 96 79 - 97 fL [facility] MCH 32.1 26.6 - 33.0 pg [facility] MCHC 33.3 31.5 - 35.7 g/dL [facility] RDW 12.4 11.6 - 15.4 % [facility] Platelets 207 150 - 450 x10E3/uL [facility] 01/19/2025 2:00 PM EST 01/19/2025 Buster Cordero MD LAB BLOOD ORDERABLES Final Re sult Performing Organization Address City/[facility]/ZIP Co de Phone Number [facility] [address] [place] [address] * Bilirubin, total and direct (01/19/2025 2:00 PM EST) Total Bilirubin <0.2 0.0 - 1.2 mg/dL [facility] Bilirubin, Direct <0.08 0.00 - 0.40 mg/dL [facility] Bilirubin, Indirect <0.12 0.10 - 0.80 mg/dL [facility] 01/19/2025 2:00 PM EST 01/19/2025 Buster Cordero MD LAB BLOOD ORDERABLES Final Re sult Performing Organization Address City/[facility]/ZIP Co de Phone Number [facility] [address] [place] [address] * ALT (01/19/2025 2:00 PM EST) ALT (SGPT) 9 0 - 44 IU/L [facility] 01/19/2025 2:00 PM EST 01/19/2025 Buster Cordero MD LAB BLOOD ORDERABLES Final Re sult Performing Organization Address [facility]/ZIP Co de Phone Number [facility] [address] [place] [address] * AST (01/19/2025 2:00 PM EST) AST (SGOT) 14 0 - 40 IU/L [facility] 01/19/2025 2:00 PM EST 01/19/2025 Buster Cordero MD LAB BLOOD ORDERABLES Final Re sult Performing Organization Address [facility] Co de Phone Number [facility] [address] [place] [address] * Alkaline phosphatase (01/19/2025 2:00 PM EST) Alkaline Phosphatase 121 44 - 121 IU/L [facility] 01/19/2025 2:00 PM EST 01/19/2025 Buster Cordero MD LAB BLOOD ORDERABLES Final Re sult Performing Organization Address City/[facility]/ZIP Co de Phone Number [facility] [address] [place] [address] * (ABNORMAL) PTH, Intact (01/19/2025 2:00 PM EST) PTH 273(H) 15 - 65 pg/mL [facility] 01/19/2025 2:00 PM EST 01/19/2025 us Buster Cordero MD LAB BLOOD ORDERABLES Final Re sult Performing Organization Address City/[facility]/ZIP Co de Phone Number [facility] [address] [place] [address] * Magnesium (01/19/2025 2:00 PM EST) Pathologist [facility] Magnesium 1.8 1.6 - 2.3 mg/dL [facility] 01/19/2025 2:00 PM EST 01/19/2025 us Buster Cordero MD LAB BLOOD ORDERABLES Final Re sult Performing Organization Address [facility] Co de Phone Number [facility] [address] [place] [address] * (ABNORMAL) Renal Function Panel (01/19/2025 2:00 PM EST) Pathologist [facility] Glucose 85 70 - 99 mg/dL [facility] BUN 41(H) 6 - 24 mg/dL [facility] Creatinine 3.32(H) 0.76 - 1.27 mg/dL [facility] eGFR CKD-EPI CR 2020 23(L) >59 mL/min/1.7 3 [facility] BUN/Creatinine Ratio 12 9 - 20 [facility] Sodium 142 134 - 144 mmol/L [facility] Potassium 5.2 3.5 - 5.2 mmol/L [facility] Chloride 108(H) 96 - 106 mmol/L [facility] Bicarbonate (CO2) 19(L) 20 - 29 mmol/L [facility] Calcium 8.5(L) 8.7 - 10.2 mg/dL [facility] Albumin 4.0(L) 4.1 - 5.1 g/dL [facility] Phosphorus 3.2 2.8 - 4.1 mg/dL [facility] 01/19/2025 2:00 PM EST 01/19/2025 Buster Cordero MD LAB BLOOD ORDERABLES Final Re sult [facility] [address] [place] [address] from Last 3 Months Insurance [facility] Care Teams Meat Processor Relationship Specialty Start Date End Date Asad Scott MD [address] [facility] [place] [address] PCP - General Internal Medicine 06/24/22
--- OUTSIDE RECORDS SUMMARY | 2025-03-09 15:59 | XMS_ITS | Encounter Summary ---
Author Organization [facility] Address [address] [address] Phone Care Team Providers Care Compilation Clerk Name Role Phone Asad Scott MD Primary Care Provider + Encounter Details Date Type Department Care Team (Latest Contact Info) Description 05/02/2024 Office Communication [facility] [address] [address] Buster Cordero MD [address] [phone] Stage 3b chronic kidney disease (HCC) (Primary [...] Visit [facility] [address] [phone] Buster Cordero MD [address] [phone] Scheduled Orders Name Type Priority Associated Diagnoses [...] disease documented in this encounter Care Teams Compilation Clerk Relationship Specialty Start Date End Date Asad Scott MD [address] [facility] [address] [place] [address] PCP - General Internal Medicine 06/24/22 documented as of this encounter
--- OUTSIDE RECORDS SUMMARY | 2025-03-09 15:59 | XMS_ITS | Encounter Summary ---
Author Organization [facility] Address [address] [facility] [address] [place] [address] Phone Care Team Providers Care Custom Feed Mill Operator Helper Name Role Phone Asad Scott MD Primary Care Provider + Reason for Visit * Reason Comments Med Refill Encounter Details Date Type Department Care Team (Late Contact Info) Description 06/30/2022 Refill [facility] [address] [facility] [address] [place] [address] Buster Cordero MD [address] [phone] Social History Tobacco Use Types [...] [facility] [address] [phone] Buster Cordero MD [address] [phone] documented as of this encounter Visit Diagnoses Not on filedocumented in this encounter Care Teams Custom Feed Mill Operator Helper Relationship Specialty Start Date End Date Asad Scott MD [address] , [address], [place] [phone] PCP - General Internal Medicine 06/24/22 documented as of this encounter
--- OUTSIDE RECORDS SUMMARY | 2025-03-09 15:59 | XMS_ITS | Encounter Summary ---
Author Organization [facility] Address [address] [address] Phone Care Team Providers Care Allergist Immunologist Name Role Phone Asad Scott MD Primary Care Provider + Reason for Visit * Reason Comments Med Refill Encounter Details Date Type Department Care Team (Late Contact Info) Description 01/31/2025 Refill [facility] [address] [phone] Marcelo Naylor MD [facility] [address] [address] Social History Tobacco Use Types [...] EDT Office Visit [facility] [address] [phone] Buster Cordero MD [address] [phone] documented as of this encounter Visit Diagnoses Not on filedocumented in this encounter Care Teams Allergist Immunologist Relationship Specialty Start Date End Date Asad Scott MD [address] [address] PCP - General Internal Medicine 06/24/22 documented as of this encounter
== END 2025-03-09 14:17 | disposition home or self-care (01) ==
LOC: HO.HMCH 13:39
PROVIDERS: PCP Internal Medicine; Visit Provider Internal Medicine
DX: I10 Essential (primary) hypertension (principal); N18.30 Chronic kidney disease, stage 3 unspecified

== ENCOUNTER → 2025-03-09 13:38 | Outpatient (BNVA) | payer OTHER, SELFPAY | PROVIDERS: PCP Internal Medicine; Visit Provider Internal Medicine | DX: Z13.89 Encounter for screening for other disorder (principal) ==

== ENCOUNTER 2025-03-29 08:00 | Outpatient (REF) | payer OTHER, SELFPAY ==
--- OUTSIDE RECORDS SUMMARY | 2025-03-29 08:04 | XMS_ITS | Encounter Summary ---
Author Organization [facility] Address 100 [facility] [address] [place] [address] Phone Care Team Providers Care Disability Services Coordinator Name Role Phone Asad Scott MD Primary Care Provider + Reason for Visit * Reason Comments Med Refill Encounter Details Date Type Department Care Team (Late Contact Info) Description 06/30/2022 Refill [facility] 100 [address] CABELLO [facility] [address] [place] [address] Buster Cordero MD [address] [phone] Social History Tobacco Use Types [...] Visit [facility] [address] [phone] Roxana Reveles ARNP [address] [address] documented as of this encounter Visit Diagnoses Not on filedocumented in this encounter Care Teams Disability Services Coordinator Relationship Specialty Start Date End Date Asad Scott MD [address] , [address], [place] [phone] PCP - General Internal Medicine 06/24/22 documented as of this encounter
--- OUTSIDE RECORDS SUMMARY | 2025-03-29 08:04 | XMS_ITS | Encounter Summary ---
Author Organization [facility] Address [address] [address] Phone Care Team Providers Care Employment Supervisor Name Role Phone Asad Scott MD Primary Care Provider + Reason for Visit * Reason Comments Med Refill Encounter Details Date Type Department Care Team (Late Contact Info) Description 01/31/2025 Refill [facility] [address] [phone] Marcelo Naylor MD [address] [address] Social History Tobacco Use Types [...] EDT Office Visit [facility] [address] [phone] Roxana Reveles ARNP [address] [address] documented as of this encounter Visit Diagnoses Not on filedocumented in this encounter Care Teams Employment Supervisor Relationship Specialty Start Date End Date Asad Scott MD [address] [address] PCP - General Internal Medicine 06/24/22 documented as of this encounter
--- OUTSIDE RECORDS SUMMARY | 2025-03-29 08:04 | XMS_ITS | Clinical Summary ---
Author Organization [facility] Address [address] [place] [phone] Phone Care Team Providers Care Associate Professor Of Management Name Role Phone Asad Scott MD Primary [...] 5 Active cholecalciferol (VITAMIN D-3) 250 MCG (79585 UT) capsule Take 1 capsule (10,000 Units [...] 01/31/2025 Refill [facility] [address] [place] [phone] Marcelo Naylor MD 01/26/2025 Refill [facility] [address] [place] [phone] Uzma Lam 01/26/2025 Refill [facility] of [address] [phone] Marcelo Naylor MD 01/17/2025 Telephone [facility] [address] [phone] Marcelo Naylor MD 01/16/2025 Refill [facility] [address] [place] [place] [phone] Marcelo Naylor MD from Last 3 Months [...] Visit [facility] [address] [phone] Abdirizak RoxanaJENNI edmondson [address] [address] Health Maintenance Due Date Last [...] Function Panel (01/19/2025 2:05 PM EST) Pathologist [facility] Total Protein 6.4 6.0 - 8.5 g/dL [facility] Albumin 4.1 4.1 - 5.1 g/dL [facility] Total Bilirubin 0.2 0.0 - 1.2 mg/dL [facility] Alkaline Phosphatase 119 44 - 121 IU/L [facility] AST (SGOT) 15 0 - 40 IU/L [facility] ALT (SGPT) 6 0 - 44 IU/L [facility] Bilirubin, Direct 0.08 0.00 - 0.40 mg/dL [facility] Blood (Blood, Venous) 01/19/2025 2:05 PM EST 01/19/2025 us Marcelo Naylor MD LAB BLOOD ORDERABLES Final Result [facility] [address] [place] [address] * (ABNORMAL) Basic Metabolic Panel (01/19/2025 2:05 PM EST) Pathologist [facility] Glucose 84 70 - 99 mg/dL [facility] BUN 41(H) 6 - 24 mg/dL [facility] Creatinine 3.16(H) 0.76 - 1.27 mg/dL [facility] eGFR CKD-EPI CR 2020 25(L) >59 mL/min/1.7 3 [facility] BUN/Creatinine Ratio 13 9 - 20 [facility] Sodium 140 134 - 144 mmol/L [facility] Potassium 5.0 3.5 - 5.2 mmol/L [facility] Chloride 107(H) 96 - 106 mmol/L [facility] Bicarbonate (CO2) 16(L) 20 - 29 mmol/L [facility] Calcium 8.7 8.7 - 10.2 mg/dL [facility] Blood (Blood, Venous) 01/19/2025 2:05 PM EST 01/19/2025 us Marcelo Naylor MD LAB BLOOD ORDERABLES Final Result [facility] [address] [place] [address] * Microscopic Examination (01/19/2025 2:00 PM EST) WBC, Urine None seen 0 - 5 /hpf [facility] RBC, Urine None seen 0 - 2 /hpf [facility] Squamous Epithelial, Urine None seen 0 - 10 /hpf [facility] Casts None seen None seen /lpf [facility] Bacteria, Urine None seen None seen/Few [facility] 01/19/2025 2:00 PM EST 01/19/2025 Buster Cordero MD LAB MICROBIOLOGY - GENERAL OR DERABLES Final Result Performing Organization Address [facility] de Phone Number [facility] [address] [place] [address] * Protein, Total, Random Urine w/Creatinine (Protein/Creat Ratio) (01/19/2025 2:00 PM EST) Creatinine, Ur 42.8 Not Estab. mg/dL [facility] Protein, Ur 5.9 Not Estab. mg/dL [facility] Urine Protein/Creatin ine Ratio 138 0 - 200 mg/g creat [facility] 01/19/2025 2:00 PM EST 01/19/2025 Buster Cordero MD LAB URINE ORDERABLES Final Re sult Performing Organization Address [facility] [address] [facility] de Phone Number [facility] [address] [place] [address] * (ABNORMAL) Urine Albumin / Creatinine Ratio (01/19/2025 2:00 PM EST) Albumin, Urine 22.6 Not Estab. ug/mL [facility] Albumin/Creatin ine Ratio 53(H) 0 - 29 mg/g creat [facility] Comment: ? Normal: ?0 - ??29 ? Moderately increased: 30 - 300 ? Severely increased: ? >300 01/19/2025 2:00 PM EST 01/19/2025 Buster Cordero MD LAB URINE ORDERABLES Final Re sult Performing Organization Address [facility] [address] [facility] Co de Phone Number [facility] [address] [place] [address] * (ABNORMAL) Vitamin D 25 Hydroxy (01/19/2025 2:00 PM EST) Vitamin D, 25-OH, Total 12.0(L) 30.0 - 100.0 ng/mL [facility] Comment: Vitamin D deficiency has been defined by the [place] of Medicine and an Endocrine Society practice guideline as a level of serum 25-OH vitamin D less than 20 ng/mL (1,2). The Endocrine Society went on to further define vitamin D insufficiency as a level between 21 and 29 ng/mL (2). 1. IOM ([place] of Medicine). 2010. Dietary reference ?? intakes [...] ORDERABLES Final Re sult Performing Organization Address City/[facility] [address]/ZIP Co de Phone Number [facility] [address] [place] [address] * Urinalysis with microscopic (01/19/2025 2:00 PM EST) Specific [place]es, Urine 1.007 1.005 - 1.030 [facility] pH Urine 6.5 5.0 - 7.5 [facility] Color, Urine Yellow Yellow [facility] Appearance Urine Clear Clear [facility] WBC Esterase Urine Negative Negative [facility] Protein, Ur Negative Negative/Tra ce [facility] Glucose, Ur Negative Negative [facility] [phone] Ketones, Urine Negative Negative [facility] Blood Urine Negative Negative [facility] Bilirubin Urine Negative Negative [facility] Urobilinogen Urine 0.2 0.2 - 1.0 mg/dL [facility] Nitrite, Urine Negative Negative [facility] Microscopic Examination Comment [facility] Comment:Microscopic follows if indicated. Other Microsc. Observations See below: [facility] Comment:Microscopic was charlie cated and was performed. 01/19/2025 2:00 PM EST 01/19/2025 us Buster Cordero MD LAB URINE ORDERABLES Final Re sult [facility] [address] [place] [address] * (ABNORMAL) CBC (01/19/2025 2:00 PM EST) WBC 5.9 3.4 - 10.8 x10E3/uL [facility] RBC 3.27(L) 4.14 - 5.80 x10E6/uL [facility] Hemoglobin 10.5(L) 13.0 - 17.7 g/dL [facility] Hematocrit 31.5(L) 37.5 - 51.0 % [facility] MCV 96 79 - 97 fL [facility] MCH 32.1 26.6 - 33.0 pg [facility] MCHC 33.3 31.5 - 35.7 g/dL [facility] RDW 12.4 11.6 - 15.4 % [facility] Platelets 207 150 - 450 x10E3/uL [facility] 01/19/2025 2:00 PM EST 01/19/2025 Buster Cordero MD LAB BLOOD ORDERABLES Final Re sult Performing Organization Address City/[facility] [address]/ZIP Co de Phone Number [facility] [address] [place] [address] * Bilirubin, total and direct (01/19/2025 2:00 PM EST) Total Bilirubin <0.2 0.0 - 1.2 mg/dL [facility] Bilirubin, Direct <0.08 0.00 - 0.40 mg/dL [facility] Bilirubin, Indirect <0.12 0.10 - 0.80 mg/dL [facility] 01/19/2025 2:00 PM EST 01/19/2025 Buster Cordero MD LAB BLOOD ORDERABLES Final Re sult Performing Organization Address City/[facility] [address]/ZIP Co de Phone Number [facility] [address] [place] [address] * ALT (01/19/2025 2:00 PM EST) ALT (SGPT) 9 0 - 44 IU/L [facility] 01/19/2025 2:00 PM EST 01/19/2025 Buster Cordero MD LAB BLOOD ORDERABLES Final Re sult Performing Organization Address [facility] [address]/ZIP Co de Phone Number [facility] [address] [place] [address] * AST (01/19/2025 2:00 PM EST) AST (SGOT) 14 0 - 40 IU/L [facility] 01/19/2025 2:00 PM EST 01/19/2025 Buster Cordero MD LAB BLOOD ORDERABLES Final Re sult Performing Organization Address [facility] [address]/[facility] Co de Phone Number [facility] [address] [place] [address] * Alkaline phosphatase (01/19/2025 2:00 PM EST) Alkaline Phosphatase 121 44 - 121 IU/L [facility] 01/19/2025 2:00 PM EST 01/19/2025 Buster Cordero MD LAB BLOOD ORDERABLES Final Re sult Performing Organization Address City/[facility] [address]/ZIP Co de Phone Number [facility] [address] [place] [address] * (ABNORMAL) PTH, Intact (01/19/2025 2:00 PM EST) PTH 273(H) 15 - 65 pg/mL [facility] 01/19/2025 2:00 PM EST 01/19/2025 us Buster Cordero MD LAB BLOOD ORDERABLES Final Re sult Performing Organization Address City/[facility] [address]/ZIP Co de Phone Number [facility] [address] [place] [address] * Magnesium (01/19/2025 2:00 PM EST) Pathologist [facility] Magnesium 1.8 1.6 - 2.3 mg/dL [facility] 01/19/2025 2:00 PM EST 01/19/2025 us Buster Cordero MD LAB BLOOD ORDERABLES Final Re sult Performing Organization Address [facility] [address] [facility] Co de Phone Number [facility] [address] [place] [address] * (ABNORMAL) Renal Function Panel (01/19/2025 2:00 PM EST) Pathologist [facility] Glucose 85 70 - 99 mg/dL [facility] BUN 41(H) 6 - 24 mg/dL [facility] Creatinine 3.32(H) 0.76 - 1.27 mg/dL [facility] eGFR CKD-EPI CR 2020 23(L) >59 mL/min/1.7 3 [facility] BUN/Creatinine Ratio 12 9 - 20 [facility] Sodium 142 134 - 144 mmol/L [facility] Potassium 5.2 3.5 - 5.2 mmol/L [facility] Chloride 108(H) 96 - 106 mmol/L [facility] Bicarbonate (CO2) 19(L) 20 - 29 mmol/L [facility] Calcium 8.5(L) 8.7 - 10.2 mg/dL [facility] Albumin 4.0(L) 4.1 - 5.1 g/dL [facility] Phosphorus 3.2 2.8 - 4.1 mg/dL [facility] 01/19/2025 2:00 PM EST 01/19/2025 Buster Cordero MD LAB BLOOD ORDERABLES Final Re sult [facility] [address] [place] [address] from Last 3 Months Insurance [facility] Care Teams Associate Professor Of Management Relationship Specialty Start Date End Date Asad Scott MD [address] [place] [facility] [address] PCP - General Internal Medicine 06/24/22
--- OUTSIDE RECORDS SUMMARY | 2025-03-29 08:04 | XMS_ITS | Encounter Summary ---
Author Organization [facility] Address [address] [address] Phone Care Team Providers Care Staff Pharmacist Name Role Phone Asad Scott MD Primary Care Provider + Encounter Details Date Type Department Care Team (Latest Contact Info) Description 05/02/2024 Office Communication [facility] [address] [address] Buster Cordero MD [address] [phone] Stage 3b chronic kidney disease (HCC) (Primary [...] Visit [facility] [address] [phone] Roxana Reveles ARNP [address] [address] Scheduled Orders Name Type Priority Associated Diagnoses [...] disease documented in this encounter Care Teams Staff Pharmacist Relationship Specialty Start Date End Date Asad Scott MD [address] [facility] [address] [place] [address] PCP - General Internal Medicine 06/24/22 documented as of this encounter
[2025-03-29 09:59] LABS: Appearance Urine Clear; Color Urine Yellow; Glucose Urine UA Negative (Negative); Leukocyte Esterase Urine Small (1+) (Negative); Nitrite Urine Negative (Negative); Specific Gravity - Urine <= 1.005 (1.005-1.025); UMIC TRIGGER UA YES; Urine Blood Negative (Negative); Urine Ketones Negative (Negative); Urine Protein Negative (Neg-Trace)
[2025-03-29 10:01] LABS: Hematocrit 33.9 % (42.0-52.0); Hemoglobin 11.3 g/dl (14.0-18.0); Mean Corpuscular HGB Conc 33.3 g/dl (31.0-36.0); Mean Corpuscular Hemoglobin 31.8 pg (27.0-33.0); Mean Corpuscular Volume 95.5 fL (80.0-98.0); Mean Platelet Volume 10.2 fL (9.4-12.4); Platelet Count 237 X10*3/uL (160-400); Red Blood Count 3.55 X10*6/uL (4.60-5.80); Red Cell Distribution Width 12.5 % (11.0-16.0); White Blood Count 6.1 X10*3/uL (4.8-10.8)
[2025-03-29 10:05] LABS: Bacteria Urine None Seen (None Seen); Hyaline Casts Urine 0-2 /LPF (0-2); RBC Urine 0-2 /HPF (0-2); Squamous Epithelial Cell Urine 0-2 /HPF (0-2)
[2025-03-29 10:16] LABS: Estimated Average Glucose 108 mg/dL; Hemoglobin A1c % 5.4 % (<6.0); Total Hemoglobin (HGBA1C) 2967.0763 umol/L
[2025-03-29 10:40] LABS: Alanine Aminotransferase 15 U/L (0-40); Albumin Level 3.9 g/dL (3.5-5.0); Alkaline Phosphatase 138 U/L (39-117); Anion Gap 15 (12-20); Aspartate Amino Transferase 20 U/L (5-37); Bilirubin Direct 0.1 mg/dL (0.0-0.5); Bilirubin Total 0.4 mg/dL (0.0-1.0); Blood Urea Nitrogen 47 mg/dL (9-16); Calcium 8.4 mg/dL (8.4-10.2); Carbon Dioxide 19 mmol/L (22-29); Chloride 113 mmol/L (96-108); Cholesterol 211 mg/dL (<200); Estimated Glomerular Filt Rate 22; Glucose Random 100 mg/dL (60-115); HDL Cholesterol 48 mg/dL (>40); LDL Cholesterol Calculated 128 mg/dL (<100); Potassium 5.6 mmol/L (3.3-5.1); Sodium 141 mmol/L (135-145); Total Protein 7.2 g/dL (6.5-8.0); Triglycerides 176 mg/dL (<150)
== END 2025-03-29 08:01 | disposition home or self-care (01) ==
LOC: HO.10HDL 08:00
PROVIDERS: Visit Provider Internal Medicine
DX: I10 Essential (primary) hypertension (principal); N18.30 Chronic kidney disease, stage 3 unspecified; Z13.1 Encounter for screening for diabetes mellitus
CPT/HCPCS: 36415; 80048; 80061; 80076; 81001; 83036; 84443; 85027

== ENCOUNTER 2025-04-11 07:45 | Outpatient (REF) | payer OTHER, SELFPAY ==
--- OUTSIDE RECORDS SUMMARY | 2025-04-11 07:48 | XMS_ITS | Clinical Summary ---
Author Organization [facility] Address [address] [address] Phone Care Team Providers Care Process Development Engineer Name Role Phone Asad Scott MD Primary [...] EVERY DAY 90 tablet 1 2 Active Jynarque 30 MG tablet Take 30mg tablet along with 15mg tablet (45mg total) by mouth daily. 30 tablet 4 5 Active Jynarque 15 MG tablet Take 15mg tablet along with 30mg tablet (45mg total) by mouth daily. 30 tablet 4 5 Active cholecalciferol (VITAMIN D-3) 250 MCG (17813 UT) capsule Take 1 capsule (10,000 Units total) by mouth every 7 (seven) days 12 capsule 1 5 07/13/20 25 Active Patiromer Sorbitex Calcium 8.4 g packIndications:H yperkalemia Take 8.4 g by mouth 3 (three) times a week 36 each 3 5 Active Patiromer Sorbitex Calcium 8.4 g pack Take 8.4 g by mouth 3 (three) times a week 90 each 3 2 04/04/20 25 Discontinu ed(Reorder (does not appear on AVS)) Active Problems Problem Noted Date Diagnosed Date Hyperkalemia 04/04/2025 Chronic kidney disease, stage 4 (severe) 024 Stage 3b chronic kidney disease 06/24/2022 Essential hypertension 05/13/2021 Essential hypertension 01/18/2021 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 Adult polycystic kidney 01/18/2021 Stage 3a chronic kidney disease 01/18/2021 Encounters Date Type Department Care Team Description 04/07/2025 Orders Only [facility] [address] [phone] Marcelo Naylor MD Adult polycystic kidney 04/04/2025 4:15 PM EDT Office Visit [facility] [address] [phone] Roxana Reveles ARNP Stage 3b chronic kidney disease (HCC) (Primary Dx); Adult polycystic kidney; Hyperkalemia; Essential hypertension 01/31/2025 Refill [facility] [address] [phone] Marcelo Naylor MD 01/26/2025 Refill [facility] [address] [phone] Uzma Lam 01/26/2025 Refill [facility] [address] [phone] Marcelo Naylor MD 01/17/2025 Telephone [facility] [address] [phone] Marcelo Naylor MD 01/16/2025 Refill [facility] [place] [address] [facility] [address] [place] [address] Marcelo Naylor MD from Last 3 Months [...] Sign Reading Time Taken Comments Blood Pressure 122/80 04/04/2025 4:29 PM EDT Pulse 66 04/04/2025 4:13 PM EDT Temperature - - Respiratory Rate - - Oxygen Saturation 98% 04/04/2025 4:13 PM EDT Inhaled Oxygen Concentration - - Weight 70.3 kg (155 lb) 04/04/2025 4:13 PM EDT Height 175.3 cm (5' 9 ) 04/30/2021 3:32 PM EDT Body Mass Index 22.89 04/30/2021 3:32 PM EDT Plan of Treatment Upcoming Encounters Date Type Department Care Team (Late st Contact Info) Description 07/24/2025 4:00 PM EDT Office Visit [facility] [address] [phone] Buster Cordero MD [address] [phone] Health Maintenance Due Date Last Done Comments Hepatitis B Vaccine (1 of 3 - 19+ 3-dose series) 02/04 Pneumococcal Vaccine: Peds ( 0 to 5 Years) and At-Risk Patients (6 to 49 Years) (1 of 2 - PCV) 02/04/2003 Influenza Vaccine (Season Ended) 2025 07/30/20 16 Procedures Procedure Name Priority Date/Time Associated Diagnosis Comments EXT RESULT ENTRY Routine 03/29/2025 BASIC METABOLIC PANEL Routine 01/19/2025 2:05 PM [...] EST from Last 3 Months Results * (ABNORMAL) EXT RESULT ENTRY (03/29/2025) Hemoglobin 11.3(A) 13.5 - 17.5 Hematocrit 33.9(A) 41.0 - 53.0 Platelets 237 150 - 399 10*3/UL Sodium 141 137 - 147 Potassium 5.6(A) 3.4 - 5.5 Carbon Dioxide 19 mmol/L BUN 47(A) 4 - 21 mg/dL Creatinine 3.14(A) 0.60 - 1.30 mg/dL Calcium 8.4(A) 8.7 - 10.7 mg/dL eGFR Non-Afr [place] 22 Urine Specific [place] 1.005 03/29/2025 Historical Provider LAB BLOOD ORDERABLES Lauren l Result * Hepatic Function Panel (01/19/2025 2:05 PM EST) Total Protein 6.4 6.0 - 8.5 g/dL [facility] Albumin 4.1 4.1 - 5.1 g/dL [facility] Total Bilirubin 0.2 0.0 - 1.2 mg/dL [facility] Alkaline Phosphatase 119 44 - 121 IU/L [facility] AST (SGOT) 15 0 - 40 IU/L [facility] ALT (SGPT) 6 0 - 44 IU/L [facility] Bilirubin, Direct 0.08 0.00 - 0.40 mg/dL [facility] Blood specimen (specimen) Venous blood / Unknown 01/19/2025 2:05 PM EST 01/19/2025 Marcelo Naylor MD LAB BLOOD ORDERABLES Final Result [facility] [address] [place] [address] * (ABNORMAL) Basic Metabolic Panel (01/19/2025 2:05 PM EST) Glucose 84 70 - 99 mg/dL [facility] BUN 41(H) 6 - 24 mg/dL [facility] Creatinine 3.16(H) 0.76 - 1.27 mg/dL [facility] eGFR CKD-EPI CR 2020 25(L) >59 mL/min/1.7 3 [facility] BUN/Creatinine Ratio 13 9 - 20 [facility] Sodium 140 134 - 144 mmol/L [facility] Potassium 5.0 3.5 - 5.2 mmol/L [facility] Chloride 107(H) 96 - 106 mmol/L [facility] Bicarbonate (CO2) 16(L) 20 - 29 mmol/L [facility] Calcium 8.7 8.7 - 10.2 mg/dL [facility] Blood specimen (specimen) Venous blood / Unknown 01/19/2025 2:05 PM EST 01/19/2025 Marcelo Naylor MD LAB BLOOD ORDERABLES Final Result [facility] [address] [place] [address] * Microscopic Examination (01/19/2025 2:00 PM EST) WBC, Urine None seen 0 - 5 /hpf [facility] RBC, Urine None seen 0 - 2 /hpf [facility] Squamous Epithelial, Urine None seen 0 - 10 /hpf [facility] Casts None seen None seen /lpf [facility] Bacteria, Urine None seen None seen/Few [facility] 01/19/2025 2:00 PM EST 01/19/2025 Buster Cordero MD LAB MICROBIOLOGY - GENERAL OR DERABLES Final Result [facility] [address] [place] [address] * Protein, Total, Random Urine w/Creatinine (Protein/Creat Ratio) (01/19/2025 2:00 PM EST) Creatinine, Ur 42.8 Not Estab. mg/dL [facility] Protein, Ur 5.9 Not Estab. mg/dL [facility] Urine Protein/Creatin ine Ratio 138 0 - 200 mg/g creat [facility] 01/19/2025 2:00 PM EST 01/19/2025 Buster Cordero MD LAB URINE ORDERABLES Final Re sult Performing Organization Address [facility] de Phone Number [facility] [address] [place] [address] * (ABNORMAL) Urine Albumin / Creatinine Ratio (01/19/2025 2:00 PM EST) Albumin, Urine 22.6 Not Estab. ug/mL [facility] Albumin/Creatin ine Ratio 53(H) 0 - 29 mg/g creat [facility] Comment: ? Normal: ?0 - ??29 ? Moderately increased: 30 - 300 ? Severely increased: ? >300 01/19/2025 2:00 PM EST 01/19/2025 Buster Cordero MD LAB URINE ORDERABLES Final Re sult Performing Organization Address City/[facility]/ZIP Co de Phone Number [facility] [address] [place] [address] * (ABNORMAL) Vitamin D 25 Hydroxy (01/19/2025 2:00 PM EST) Vitamin D, 25-OH, Total 12.0(L) 30.0 - 100.0 ng/mL [facility] Comment: Vitamin D deficiency has been defined by the [place] of [employer] and an Endocrine Society practice guideline as a level of serum 25-OH vitamin D less than 20 ng/mL (1,2). The Endocrine Society went on to further define vitamin D insufficiency as a level between 21 and 29 ng/mL (2). 1. IOM ([place] of [employer]). 2010. Dietary reference ?? intakes for calcium and D. [place]: The ?? [employer] Press. 2. Libia MF, Narayan PLASENCIA, Mak KELLY, et al. ?? Evaluation, treatment, and prevention of vitamin D ?? deficiency: an Endocrine Society clinical practice ?? guideline. JCEM. 2010; 96(7):1911-30. 01/19/2025 2:00 PM EST 01/19/2025 Buster Cordero MD LAB BLOOD ORDERABLES Final Re sult Performing Organization Address City/[facility]/ZIP Co de Phone Number [facility] [address] [place] [address] * Urinalysis with microscopic (01/19/2025 2:00 PM EST) Specific [place], Urine 1.007 1.005 - 1.030 [facility] [phone] pH Urine 6.5 5.0 - 7.5 [facility] [phone] Color, Urine Yellow Yellow [facility] [phone] Appearance Urine Clear Clear [facility] WBC Esterase Urine Negative Negative [facility] Protein, Ur Negative Negative/Tra ce [facility] Glucose, Ur Negative Negative [facility] [phone] Ketones, Urine Negative Negative [facility] Blood Urine Negative Negative [facility] Bilirubin Urine Negative Negative [facility] [phone] Urobilinogen Urine 0.2 0.2 - 1.0 mg/dL [facility] [phone] Nitrite, Urine Negative Negative [facility] Microscopic Examination Comment [facility] [phone] Comment:Microscopic follows if indicated. Other Microsc. Observations See below: [facility] [phone] Comment:Microscopic was charlie cated and was performed. 01/19/2025 2:00 PM EST 01/19/2025 us Buster Cordero MD LAB URINE ORDERABLES Final Re sult [facility] [address] [place] [address] * (ABNORMAL) CBC (01/19/2025 2:00 PM EST) WBC 5.9 3.4 - 10.8 x10E3/uL [facility] RBC 3.27(L) 4.14 - 5.80 x10E6/uL [facility] Hemoglobin 10.5(L) 13.0 - 17.7 g/dL [facility] Hematocrit 31.5(L) 37.5 - 51.0 % [facility] MCV 96 79 - 97 fL [facility] MCH 32.1 26.6 - 33.0 pg [facility] MCHC 33.3 31.5 - 35.7 g/dL [facility] RDW 12.4 11.6 - 15.4 % [facility] Platelets 207 150 - 450 x10E3/uL [facility] 01/19/2025 2:00 PM EST 01/19/2025 Buster Cordero MD LAB BLOOD ORDERABLES Final Re sult Performing Organization Address [facility] Co de Phone Number [facility] [address] [place] [address] * Bilirubin, total and direct (01/19/2025 2:00 PM EST) Total Bilirubin <0.2 0.0 - 1.2 mg/dL [facility] Bilirubin, Direct <0.08 0.00 - 0.40 mg/dL [facility] Bilirubin, Indirect <0.12 0.10 - 0.80 mg/dL [facility] 01/19/2025 2:00 PM EST 01/19/2025 Buster Cordero MD LAB BLOOD ORDERABLES Final Re sult Performing Organization Address [facility] Co de Phone Number [facility] [address] [place] [address] * ALT (01/19/2025 2:00 PM EST) ALT (SGPT) 9 0 - 44 IU/L [facility] 01/19/2025 2:00 PM EST 01/19/2025 Buster Cordero MD LAB BLOOD ORDERABLES Final Re sult Performing Organization Address City/[facility] Co de Phone Number [facility] [address] [place] [address] * AST (01/19/2025 2:00 PM EST) AST (SGOT) 14 0 - 40 IU/L [facility] 01/19/2025 2:00 PM EST 01/19/2025 Buster Cordero MD LAB BLOOD ORDERABLES Final Re sult Performing Organization Address City/[facility]/ZIP Co de Phone Number [facility] [address] [place] [address] * Alkaline phosphatase (01/19/2025 2:00 PM EST) Alkaline Phosphatase 121 44 - 121 IU/L [facility] 01/19/2025 2:00 PM EST 01/19/2025 Buster Cordero MD LAB BLOOD ORDERABLES Final Re sult Performing Organization Address City/[facility]/ZIP Co de Phone Number [facility]? [facility] [address] [place] [address] * (ABNORMAL) PTH, Intact (01/19/2025 2:00 PM EST) PTH 273(H) 15 - 65 pg/mL [facility] 01/19/2025 2:00 PM EST 01/19/2025 Buster Cordero MD LAB BLOOD ORDERABLES Final Re sult Performing Organization Address City/[facility]/ZIP Co de Phone Number [facility]? [facility] [address] [place] [address] * Magnesium (01/19/2025 2:00 PM EST) Magnesium 1.8 1.6 - 2.3 mg/dL [facility] 01/19/2025 2:00 PM EST 01/19/2025 us Buster Cordero MD LAB BLOOD ORDERABLES Final Re sult [facility] [address] [place] [address] * (ABNORMAL) Renal Function Panel (01/19/2025 2:00 PM EST) Pathologist [facility] Glucose 85 70 - 99 mg/dL [facility] BUN 41(H) 6 - 24 mg/dL [facility] Creatinine 3.32(H) 0.76 - 1.27 mg/dL [facility] eGFR CKD-EPI CR 2020 23(L) >59 mL/min/1.7 3 [facility] BUN/Creatinine Ratio 12 9 - 20 [facility] Sodium 142 134 - 144 mmol/L [facility] Potassium 5.2 3.5 - 5.2 mmol/L [facility] Chloride 108(H) 96 - 106 mmol/L [facility] Bicarbonate (CO2) 19(L) 20 - 29 mmol/L [facility] Calcium 8.5(L) 8.7 - 10.2 mg/dL [facility] Albumin 4.0(L) 4.1 - 5.1 g/dL [facility] Phosphorus 3.2 2.8 - 4.1 mg/dL [facility] 01/19/2025 2:00 PM EST 01/19/2025 us Buster Cordero MD LAB BLOOD ORDERABLES Final Re sult [facility] [address] [place] [address] from Last 3 Months Insurance [facility] Care Teams Process Development Engineer Relationship Specialty Start Date End Date Asad Scott MD [address] [address] PCP - General Internal Medicine 06/24/22
[2025-04-11 11:01] LABS: Anion Gap 12 (12-20); Blood Urea Nitrogen 44 mg/dL (9-16); Calcium 8.3 mg/dL (8.4-10.2); Carbon Dioxide 21 mmol/L (22-29); Chloride 111 mmol/L (96-108); Estimated Glomerular Filt Rate 23; Glucose Random 94 mg/dL (60-115); Potassium 4.6 mmol/L (3.3-5.1); Sodium 139 mmol/L (135-145)
== END 2025-04-11 07:46 | disposition home or self-care (01) ==
LOC: HO.10HDL 07:45
PROVIDERS: Visit Provider Internal Medicine Nephrology
DX: N18.32 Chronic kidney disease, stage 3b (principal); Q61.2 Polycystic kidney, adult type; E87.5 Hyperkalemia
CPT/HCPCS: 36415; 80048

== ENCOUNTER 2025-07-10 07:42 | Outpatient (REF) | payer OTHER, SELFPAY ==
--- OUTSIDE RECORDS SUMMARY | 2025-07-10 07:46 | XMS_ITS | Clinical Summary ---
Author Organization [facility] Address [address] [place] [phone] Phone Care Team Providers Care Radiology Scheduler Name Role Phone Asad Scott MD Primary [...] EVERY DAY 90 tablet 1 2 Active cholecalciferol (VITAMIN D-3) 250 MCG (92066 UT) capsule Take 1 capsule (10,000 Units total) by mouth every 7 (seven) days 12 capsule 1 5 07/13/20 25 Active Patiromer Sorbitex Calcium 8.4 g packIndications:H yperkalemia Take 8.4 g by mouth 3 (three) times a week 36 each 3 5 Active Tolvaptan (Jynarque) 15 MG tablet Take 15 mg by mouth 1 (one) time each day 30 tablet 3 5 Active Tolvaptan (Jynarque) 30 MG tablet Take 30 mg by mouth 1 (one) time each day 30 tablet 4 5 Active Jynarque 30 MG tablet Take 30mg tablet along with 15mg tablet (45mg total) by mouth daily. 30 tablet 4 5 07/07/20 25 Discontinu ed(Reorder (does not appear on AVS)) Jynarque 15 MG tablet Take 15mg tablet along with 30mg tablet (45mg total) by mouth daily. 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 Adult polycystic kidney 01/18/2021 Stage 3a chronic kidney disease 01/18/2021 Encounters Date Type Department Care Team Description 07/07/2025 Refill [facility] [address] [phone] Génesis Canela 07/07/2025 Refill [facility] [address] [phone] Ray Nixiflorentin 07/07/2025 Refill [facility] [address] [phone] Bell, Nixilu 06/22/2025 Refill [facility] [address] [phone] Martha Campos MA 06/16/2025 Orders Only [facility] [address] [phone] Roxana Reveles ARNP Stage 3b chronic kidney disease (HCC); Adult polycystic kidney; Hyperkalemia; Essential hypertension from Last 3 Months Immunizations Immunization Administration [...] Office Visit [facility] [address] [phone] Buster Cordero MD [address] [phone] Health Maintenance Due Date Last Done Comments Hepatitis B Vaccine (1 of 3 - 19+ 3-dose series) 02/04 Pneumococcal Vaccine: Peds ( 0 to 5 Years) and At-Risk Patients (6 to 49 Years) (1 of 2 - PCV) 02/04/2003 Influenza Vaccine (#1) 2025 07/30/2016 Insurance [facility] Care Teams Radiology Scheduler Relationship Specialty Start Date End Date Asad Scott MD [address] [address] PCP - General Internal Medicine 06/24/22
[2025-07-10 10:52] LABS: MANUAL DIFF FLAG NO
[2025-07-10 11:02] LABS: Hematocrit 33.1 % (42.0-52.0); Hemoglobin 10.9 g/dl (14.0-18.0); Imm Gran Abs Auto 0.01 X10*3/uL (0.00-0.03); Imm Gran Pct Auto 0.1 % (0.0-0.4); Lymphocytes Absolute Auto 2.0 X10*3/uL (1.2-4.9); Mean Corpuscular HGB Conc 32.9 g/dl (31.0-36.0); Mean Corpuscular Hemoglobin 31.6 pg (27.0-33.0); Mean Corpuscular Volume 95.9 fL (80.0-98.0); NRBC Abs Auto 0.000 X10*3/uL (0.0-0.012); NRBC Pct Auto 0.0 /100WBC (0.0-0.2); Platelet Count 232 X10*3/uL (160-400); Red Blood Count 3.45 X10*6/uL (4.60-5.80); White Blood Count 7.5 X10*3/uL (4.8-10.8)
[2025-07-10 11:20] LABS: Anion Gap 15 (12-20); Blood Urea Nitrogen 47 mg/dL (9-16); Calcium 8.2 mg/dL (8.4-10.2); Carbon Dioxide 17 mmol/L (22-29); Chloride 114 mmol/L (96-108); Estimated Glomerular Filt Rate 21; Magnesium 1.8 mg/dL (1.6-2.6); Potassium 4.8 mmol/L (3.3-5.1); Sodium 141 mmol/L (135-145)
[2025-07-10 11:40] LABS: Microalbum/Creatinine Ratio Ur 132.9 ug/mg cr (<30); Protein/Creatinine Ratio, Ur 0.29 (<0.2); Total Protein Urine Random 13 mg/dL (<12)
[2025-07-10 11:51] LABS: Parathyroid Hormone Intact 658.2 pg/mL (8.7-77.1)
== END 2025-07-10 07:43 | disposition home or self-care (01) ==
LOC: HO.10HDL 07:42
PROVIDERS: Visit Provider Internal Medicine Nephrology
DX: I12.9 Hypertensive chronic kidney disease with stage 1 through stage 4 chronic kidney disease, or unspecified chronic kidney disease (principal); N18.32 Chronic kidney disease, stage 3b; Q61.2 Polycystic kidney, adult type; E78.5 Hyperlipidemia, unspecified
CPT/HCPCS: 36415; 80051; 82043; 82310; 82565; 82570; 83735; 83970; 84156; 84520; 85025

== ENCOUNTER 2025-08-21 13:16 | Outpatient (AMB) | payer OTHER, SELFPAY ==
[2025-08-21 14:48] VITALS: BP 124/80; PULSE 95; TEMP 37.9; O2SAT 98; BMI 22.8
--- NOTE | 2025-08-21 14:48 | AM.OFFWIN_ITS ---
Intake Vital Signs 08/21/25 14:48 Height 5 ft 8 in Weight 150 lb BMI 22.8 BP 124/80 Blood Pressure Location Lt brachial Position Sitting Pulse 95 Pulse Source Pulse Oximeter Temp 100.3 F Temp Source Oral Pulse Oximetry (%) 98 Oxygen Delivery Method Room Air Intake Visit Reasons: ep deep cold chills congestion Intake Note: pt presents with chest congestion with productive cough, sinus, congestion, body aches/chills Patient Tobacco Use Status: Former Tobacco user Allergies No Known Allergies Allergy (Verified 08/21/25 14:52) Do you need a note to return to daycare/school/sports/work: No HPI HPI Comments History of Present Illness Details History - The patient is a 40-year-old male pres enting with symptoms of a deep cough, chest pain, body aches, and nasal congestion. - The symptoms began approximately two d ays ago following a recent vacation to [email or web address] involving air travel with a group of 12 people. - The patient reports coughing up green mucus and experiencing sore throat, ear pain, and congestion. - He has taken cough drops and NyQuil to manage the symptoms. - There is no history of smoking or asth ma. - He has only tried cough drops that he got at the airport. - He denies fever, chills, CP, SOB, abd pain, n/v/d. Physical Exam General: Cooperative, healthy appearing, comfortable and no acute distress Orientation/consciousness: Patient oriented x3 Limitations: No limitations Head: Normal to inspection Ears: Hearing grossly normal bilaterally, external ears normal and TM's normal bilaterally Nose: Stuffy nose present Face and sinus: Sinuses nontender to palpation. Mouth: Normal oral and palatal mucosa present and moist mucous membranes noted. Throat: Tonsils normal. Uvula is midline. Posterior oropharynx with erythema and no exudates. Eyes: Appearance normal, both eyes and all related structures Neck: Normal visual inspection, full ROM. No lymphadenopathy noted. Respiratory: Clear to auscultation bilaterally. Normal respiratory effort, able to speak in complete sentences. No respiratory distress, not tachypneic, no tripod positioning and no use of accessory muscles. Cardiovascular: Regular rate and rhythm. Normal S1 and S2 Skin: No rashes or lesions noted Patient was informed and verbally consented to the use of an ambient scribe for clinic note documentation during this visit [facility] Medical History Cough Acute respiratory disease Adult polycystic kidney disease Chronic kidney disease, stage 3 Essential hypertension Surgical History No pertinent past surgical history Family History Father Diabetes PCK (polycystic kidney disease) Mother Medical history unknown Sister PCK (polycystic kidney disease) Social History Housing: Apartment Alcohol intake: current Alcohol intake frequency: holidays/special occasions only Patient Tobacco Use Status: Former Tobacco user e-Cigarette/Vaping Use: Never Used Second Hand Smoke Exposure: Yes service: No Current occupational status: employed 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 Cognitive needs: No Hearing needs: No Vision needs: No Review of Systems Const All systems reviewed & are unremarkable except as noted in HPI and below Physical Exam Vital Signs: Last Vital Signs Temp 100.3 F 08/21/25 14:48 Pulse 95 08/21/25 14:48 BP 124/80 08/21/25 14:48 Pulse Ox 98 08/21/25 14:48 Oxygen Delivery Method Room Air 08/21/25 14:48 BMI result Body Mass Index 22.8 Assessment & Plan Assessment & Plan (1) URI with cough and congestion: Code(s): J06.9 - Acute upper respiratory infection, unspecified Plan Most likely URI vs covid vs RSV vs flu vs viral illness plan - The patient will be tested for respiratory illnesses to confirm the diagnosis. - Medications including an inhaler, cough medicine, and a decongestant have been prescribed. - tylenol or motrin as needed for pain or fever - diet as tolerated - The patient will be contacted with test results to determine further management. Orders: Orders Resp Pathogen Panel - [facility] Today J06.9 - Acute upper respiratory infection, unspecified Medications: New albuterol sulfate 90 mcg/actuation 2 puffs inhalation Q6H PRN 8.5 grams 0RF shortness of breath or wheezing or cough cetirizine-pseudoephedrine 5-120 mg ER 1 tab PO BID 14 tabs 0RF 7 days benzonatate 100 mg PO bid-tid PRN 21 caps 0RF Cough 7 days Coding Level of Care Code Est Pt Level 3 (77107) Diagnoses URI with cough and congestion J06.9
== END 2025-08-21 15:47 | disposition home or self-care (01) ==
PROVIDERS: PCP Internal Medicine; Visit Provider Physician Assistant Medical
DX: J06.9 Acute upper respiratory infection, unspecified (principal)

== ENCOUNTER 2025-08-21 13:16 | Outpatient (REF) | payer OTHER, SELFPAY ==
[2025-08-22 11:09] LABS: Chlamydia pneumoniae PCR Not Detected (Not Detect.); Coronavirus 229E PCR Not Detected (Not Detect.); Coronavirus HKU1 PCR Not Detected (Not Detect.); Coronavirus NL63 PCR Not Detected (Not Detect.); Coronavirus OC43 PCR Not Detected (Not Detect.); RSV PCR Not Detected (Not Detect.); Rhino/Enterovirus PCR Detected (Not Detect.)
[2025-08-22 11:16] LABS: Influenza A H1 PCR Not Detected (Not Detect.); Influenza A H1-2009 PCR Not Detected (Not Detect.); Influenza A H3 PCR Not Detected (Not Detect.); SARS-CoV-2 PCR Not Detected (Not Detect.)
--- OUTSIDE RECORDS SUMMARY | 2025-08-22 12:07 | XMS_ITS | Clinical Summary ---
Author Organization [facility] Address [address] [place] [phone] Phone Care Team Providers Care Advertising Internship Name Role Phone Asad Scott MD Primary Care Provider + Allergies No known active allergies Medications Blood Pressure Monitor kit 1 kit 1 (one) time 019 Active amLODIPine (NORVASC) 2.5 MG tabletIndications:Esse ntial hypertension Take 1 tablet (2.5 mg total) by mouth 1 (one) time each day 90 tablet 3 022 Active lisinopril 10 MG tablet TAKE 1 TABLET BY MOUTH EVERY DAY 90 tablet 1 022 Active Patiromer Sorbitex Calcium 8.4 g packIndications:Hyperk alemia Take 8.4 g by mouth 3 (three) times a week 36 each 3 025 Active Tolvaptan (Jynarque) 30 MG tablet Take 30 mg by mouth 1 (one) time each day 30 tablet 4 025 Active Additional Information Patient not taking.Reported on 07/24/2025 calcitriol (Rocaltrol) 0.25 MCG capsuleIndications:Sec ondary hyperparathyroidism of renal origin (HCC) Take 1 capsule (0.25 mcg total) by mouth 1 (one) time each day 30 capsule 11 025 2025 Active Tolvaptan (Jynarque) 30 & 15 MG tablet therapy pack Take 30 mg by mouth 1 (one) time each day in the morning AND 15 mg at bed time. 90 each 1 025 2024 Active Tolvaptan (Jynarque) 30 & 15 MG tablet therapy pack Take 30 mg by mouth 1 (one) time each day in the morning AND 15 mg at bed time. 90 each 1 025 2024 Disconti nued(Reo rder (does not appear on AVS)) Active Problems Problem Noted Date Diagnosed Date Chronic kidney disease, stage 4 (severe) 025 Anemia in chronic kidney disease 04/12/2025 Hyperkalemia 04/04/2025 Chronic kidney disease, stage 4 (severe) 024 Stage 3b chronic kidney disease 06/24/2022 Essential hypertension 05/13/2021 Essential hypertension 01/18/2021 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 Adult polycystic kidney 01/18/2021 Stage 3a chronic kidney disease 01/18/2021 Encounters Date Type Department Care Team Description 08/09/2025 Office Communication [facility] [address] [phone] Hillary Calloway MA 08/09/2025 Refill [facility] [address] [address] Hillary Calloway MA 08/09/2025 Refill [facility] [address] [address] Hillary Calloway MA 07/26/2025 Office Communication [facility] [address] [address] Buster Cordero MD 07/24/2025 4:00 PM EDT Office Visit [facility] [address] [address] Buster Cordero MD Chronic kidney disease, stage 4 (severe) (HCC) (Primary Dx); Adult polycystic kidney; Essential hypertension 07/14/2025 Office Communication [facility] [address] [address] Génesis Canela 07/13/2025 Refill [facility] [address] [address] [place], [facility] 07/10/2025 Office Communication [facility] [address] [address] Roxana Reveles ARNP 07/10/2025 Orders Only [facility] [address] [address] Roaxna Reveles ARNP Secondary hyperparathyroidism of renal origin (HCC) (Primary Dx) 07/10/2025 Orders Only [facility] [address] [address] Roxana Reveles ARNP 07/07/2025 Refill [facility] [address] [address] [place], [facility] 07/07/2025 Refill [facility] [address] [address] [facility] 07/07/20[facility] Refill [facility] [address] [address] [place], [facility] 06/22/2025 Refill [facility] [address] [address] Martha Campos MA 06/16/2025 Orders Only [facility] [address] [address] Roxana Reveles ARNP Stage 3b chronic kidney [...] Sign Reading Time Taken Comments Blood Pressure 126/84 07/24/2025 3:38 PM EDT Pulse 75 07/24/2025 3:38 PM EDT Temperature - - Respiratory Rate - - Oxygen Saturation 98% 07/24/2025 3:38 PM EDT Inhaled Oxygen Concentration - - Weight 73.2 kg (161 lb 6.4 oz) 07/24/2025 3:38 P M EDT Height 175.3 cm (5' 9 ) 04/30/2021 3:32 PM EDT Body Mass Index 23.83 04/30/2021 3:32 PM EDT Plan of Treatment Upcoming Encounters Date Type Department Care Team (Late st Contact Info) Description 10/24/2025 4:00 PM EST Office [facility] [address] [phone] Roxana Reveles ARNP [address] [phone] Health Maintenance Due Date Last Done Comments Hepatitis B Vaccine (1 of 3 - 19+ 3-dose series) 02/04 Pneumococcal Vaccine: Peds ( 0 to 5 Years) and At-Risk Patients (6 to 49 Years) (1 of 2 - PCV) 02/04/2003 Influenza Vaccine (#1) 2025 07/30/2016 Procedures Procedure Name Priority Date/Time Associated Diagnosis Comments ALBUMIN, URINE, RANDOM Routine 07/10/2025 10:53 AM EDT PROTEIN / CREATININE RATIO, URINE Routine 07/10/2025 10:53 AM EDT Stage 3b chronic kidney disease (HCC) Adult polycystic kidney Hyperkalemia Essential hypertension PTH, INTACT (HC) Routine 07/10/2025 10:4 5 AM EDT CALCIUM Routine 07/10/2025 10:45 AM EDT CREATININE, BLOOD Routine 07/10/2025 10: 45 AM EDT BUN Routine 07/10/2025 10:45 AM EDT ELECTROLYTE PANEL Routine 07/10/2025 10: 45 AM EDT CBC AND DIFFERENTIAL Routine 07/10/2025 10:45 AM EDT MAGNESIUM Routine 07/10/2025 10:45 AM EDT Stage 3b chronic kidney disease (HCC) Adult polycystic kidney Hyperkalemia Essential hypertension from Last 3 Months Results * (ABNORMAL) Urine Protein / creatinine ratio (07/10/2025 10:53 AM EDT) Protein Urine Random 13(H) <12 mg/dL See order comments Protein/Creati nine Ratio, Urine 0.29(H) <0.2 See order comments Comment: The spot urine protein:creatinine ratio may increase to 0.3 during normal . Urine Urine specimen obtained by clean catch procedure / Unknown 07/10/2025 10:53 AM EDT 07/10/2025 10:53 AM EDT Roxana Reveles [facility] LAB URINE ORDERABLES Final Result [place] See order comments [place] [address] * (ABNORMAL) Albumin, urine, random (07/10/2025 10:53 AM EDT) Creatinine, Urine 44.38 mg/dL Se e order comments Urine Microalbumin 59.0 mg/L See order comments Microalbumin/Crea tinine Ratio 132.9(H) <30 ug/mg cr See order comments Comment: Albumin/Creatinine Ratio Reference Ranges: Normal: < 30 ug/mg creatinine Microalbuminuria: 30 - 300 ug/mg creatinine Clinical Albuminuria: > 300 ug/mg creatinine 07/10/2025 10:5 3 AM EDT 07/10/2025 10:53 AM EDT MetaStat [facility] LAB URINE ORDERABLES Final Result Performing Organization Address City/[facility] Co de Phone Number [place] See order comments [place] [address] * (ABNORMAL) Creatinine (07/10/2025 10:45 AM EDT) Creatinine Serum 3.26(H) 0.5 - 1.4 mg/dL See order comments eGFR (Calc) 21 See orde r comments Comment: Chronic Kidney Disease: Estimated GFR < 60 mL/min/1.73m2 Severe Kidney Disease: Estimated GFR < 15 mL/min/1.73m2 07/10/2025 10:4 5 AM EDT 07/10/2025 10:45 AM EDT [facility] LAB BLOOD ORDERABLES Final Result Performing Organization Address [facility] Co de Phone Number [place] See order comments [place] [address] * (ABNORMAL) PTH, Intact (07/10/2025 10:45 AM EDT) Parathyroid Hormone, Intact 658.2(H) 8.7 - 77.1 pg/mL See order comments 07/10/2025 10:4 5 AM EDT 07/10/2025 10:45 AM EDT [facility] LAB HISTORICAL-CONVERSIONS- UNSOLICITED RESULTS Final Result Performing Organization Address City/[facility] Co de Phone Number [place] See order comments [place] [address] * (ABNORMAL) CBC and Differential (07/10/2025 10:45 AM EDT) WBC 7.5 4.8 - 10.8 X10*3/uL See order comments RBC 3.45(L) 4.60 - 5.80 X10*6/uL See order comments Hgb 10.9(L) 14.0 - 18.0 g/dl See order comments Hematocrit 33.1(L) 42.0 - 52.0 % See order comments MCV 95.9 80.0 - 98.0 fL See order comments MCH 31.6 27.0 - 33.0 pg See order comments MCHC 32.9 31.0 - 36.0 g/dl See order comments RDW 12.3 11.0 - 16.0 % See order comments Platelets 232 160 - 400 X10*3/uL See order comments MPV 10.7 9.4 - 12.4 fL See order comments Neutrophils % Auto 62.2 45 - 73 % See order comments Immature Granulocytes 0.1 0.0 - 0.4 % See order comments Lymphocytes Relative 27.0 20 - 40 % See order comments Monocytes 8.3 2 - 11 % See order comments Eosinophils Relative 2.0 0 - 4 % See order comments Basophils Relative 0.4 0 - 2 % See order comments nRBC Count 0.0 0.0 - 0.2 /100WBC See order comments Neutrophils Absolute 4.7 2.0 - 8.3 x10*3/uL See order comments Immature Grans (Absolute) 0.01 0.00 - 0.03 X10*3/uL See order comments Lymphocytes Absolute 2.0 1.2 - 4.9 X10*3/uL See order comments Monocytes Absolute 0.6 0.1 - 1.2 X10*3/uL See order comments Eosinophils Absolute 0.2 0.0 - 0.4 X10*3/uL See order comments Basophils Absolute 0.0 0.0 - 0.2 X10*3/uL See order comments NRBC Absolute 0.000 0.0 - 0.012 X10*3/uL See order comments 07/10/2025 10:4 5 AM EDT 07/10/2025 10:45 AM EDT us Roxana Abdirizak [facility] LAB BLOOD ORDERABLES Final Result [place] See order comments [place] [address] * (ABNORMAL) BUN (07/10/2025 10:45 AM EDT) BUN 47(H) 9 - 16 mg/dL See order comments 07/10/2025 10:4 5 AM EDT 07/10/2025 10:45 AM EDT [facility] LAB BLOOD ORDERABLES Final Result Performing Organization Address [facility] Phone Number [place] See order comments [place] [address] * Magnesium (07/10/2025 10:45 AM EDT) Magnesium 1.8 1.6 - 2.6 mg/dL See order comments Blood Venous blood / Unknown 07/10/2025 10:45 AM EDT 07/10/2025 10:45 AM EDT [facility] LAB BLOOD ORDERABLES Final Result Performing Organization Address [facility] Phone Number [place] See order comments [place] [address] * (ABNORMAL) Calcium (07/10/2025 10:45 AM EDT) Pathologist [facility] Calcium 8.2(L) 8.4 - 10.2 mg/dL See order comments 07/10/2025 10:4 5 AM EDT 07/10/2025 10:45 AM EDT [facility] LAB BLOOD ORDERABLES Final Result Performing Organization Address [facility] Phone Number [place] See order comments [place] [address] * (ABNORMAL) Electrolyte panel (07/10/2025 10:45 AM EDT) Sodium 141 135 - 145 mmol/L See order comments Potassium 4.8 3.3 - 5.1 mmol/L See order comments Chloride 114(H) 96 - 108 mmol/L See order comments Bicarbonate (CO2) 17(L) 22 - 29 mmol/L See order comments Anion Gap 15 12 - 20 See order comments 07/10/2025 10:4 5 AM EDT 07/10/2025 10:45 AM EDT Roxana Reveles [facility] LAB BLOOD ORDERABLES Final Result [place] See order comments [place] [address] from Last 3 Months Insurance Care Teams Advertising Internship Relationship Specialty Start Date End Date Asad Scott MD [facility] [address] [place] [address] [place] [address] PCP - General Internal Medicine 06/24/22
--- OUTSIDE RECORDS SUMMARY | 2025-08-22 12:07 | XMS_ITS | Encounter Summary ---
Author Organization [facility] Address [address] [phone] Phone Care Team Providers Care Records Associate Name Role Phone Asad Scott MD Primary Care Provider + Reason for Visit * Reason Comments Med Refill Encounter Details Date Type Department Care Team (Late Contact Info) Description 01/31/2025 Refill [facility] [address] [phone] Marcelo Naylor MD [address] [phone] Social History Tobacco Use Types [...] EST Office Visit [facility] [address] [phone] Roxana Reveles ARNP [address] [phone] documented as of this encounter Visit Diagnoses Not on filedocumented in this encounter Care Teams Records Associate Relationship Specialty Start Date End Date Asad Scott MD [address] [address] PCP - General Internal Medicine 06/24/22 documented as of this encounter
--- OUTSIDE RECORDS SUMMARY | 2025-08-22 12:07 | XMS_ITS | Encounter Summary ---
Author Organization [facility] Address [address] [address] Phone Care Team Providers Care Pump Operator Name Role Phone Asad Scott MD Primary Care Provider + Encounter Details Date Type Department Care Team (Latest Contact Info) Description 05/02/2024 Office Communication [facility] [place] [address] [address] Buster Cordero MD [address] [phone] Stage 3b chronic kidney disease (HCC) (Primary [...] [facility] [address] [phone] Roxana Reveles ARNP [address] [phone] Scheduled Orders Name Type Priority [...] disease documented in this encounter Care Teams Pump Operator Relationship Specialty Start Date End Date Asad Scott MD [address] [facility] [address] [place] [address] PCP - General Internal Medicine 06/24/22 documented as of this encounter
--- OUTSIDE RECORDS SUMMARY | 2025-08-22 12:07 | XMS_ITS | Encounter Summary ---
Author Organization [facility] Address [facility] [address] [place] [address] Phone Care Team Providers Care Capital Campaign Fundraiser Name Role Phone Asad Scott MD Primary Care Provider + Reason for Visit * Reason Comments Med Refill Encounter Details Date Type Department Care Team (Late Contact Info) Description 06/30/2022 Refill [facility] [address] [place] [address] Buster Cordero MD [address] [phone] Social History Tobacco Use Types [...] Visit [facility] [address] [phone] Roxana Reveles ARNP [address] [phone] documented as of this encounter Visit Diagnoses Not on filedocumented in this encounter Care Teams Capital Campaign Fundraiser Relationship Specialty Start Date End Date Asad Scott MD [address] , [facility] [address] [place], [place] [id number] PCP - General Internal Medicine 06/24/22 documented as of this encounter
--- OUTSIDE RECORDS SUMMARY | 2025-08-22 12:07 | XMS_ITS | Encounter Summary ---
Author Organization [facility] Address [address] [place] [phone] Phone Care Team Providers Care Rotoformer Backtender Name Role Phone Asad Scott MD Primary Care Provider + Encounter Details Date Type Department Care Team (Late Contact Info) Description 07/26/2025 Office Communication [facility] [address] [phone] Buster Cordero MD [facility] [address] [phone] Social History Tobacco Use Types [...] Telephone Encounter - Buster Cordero MD - 07/26/2025 9:04 AM EDT Pls make sure u sent referral to [facility] xpalnt for hi to get eval for xpalnt--thx documented in this encounter Plan of Treatment Upcoming Encounters Date Type Department Care Team (Late st Contact Info) Description 10/24/2025 4:00 PM EST Office Visit [facility] [place] [phone] [phone] Roxana Reveles ARNP [address] [phone] documented as of this encounter Visit Diagnoses Not on filedocumented in this encounter Care Teams Rotoformer Backtender Relationship Specialty Start Date End Date Asad Scott MD [address] , [facility] [address] [place] [address] PCP - General Internal Medicine 06/24/22 documented as of this encounter
== END 2025-08-21 13:17 | disposition home or self-care (01) ==
LOC: HO.LNP 13:16
PROVIDERS: PCP Internal Medicine; Visit Provider Physician Assistant Medical
DX: J06.9 Acute upper respiratory infection, unspecified (principal); R05.9 Cough, unspecified; R09.81 Nasal congestion; Z87.891 Personal history of nicotine dependence
CPT/HCPCS: 87633

== ENCOUNTER 2025-09-07 15:37 | Outpatient (AMB) | payer OTHER, SELFPAY ==
--- NOTE | 2025-09-07 15:45 | A.OFFPC_ITS ---
Vital Signs 09/07/25 15:47 Height 5 ft 8 in Weight 157 lb BMI 23.9 BP 120/80 Blood Pressure Location Lt brachial Position Sitting Pulse 72 Pulse Source Pulse Oximeter Temp 97.3 F Temp Source Temporal Artery Scan Pulse Oximetry (%) 99 Oxygen Delivery Method Room Air Intake Visit Reasons: 6mth f/u Intake Note: Patient is here to follow up on CKD, HTN. Pumper Gager Apprentice Required: No Stripper Apprentice: Not Required per policy Accompanied by: Self / Same As Patient Allergies No Known Allergies Allergy (Verified 09/07/25 15:46) Tobacco use date assessed: 09/07/25 Dental Screening Dental Screen Date: 03/09/25 [facility] Medical History Cough Acute respiratory disease Adult polycystic kidney disease Chronic kidney disease, stage 3 Essential hypertension Surgical History No pertinent past surgical history Family History Father Diabetes PCK (polycystic kidney disease) Mother Medical history unknown Sister PCK (polycystic kidney disease) Social History Housing: Apartment Alcohol intake: current Alcohol intake frequency: holidays/special occasions only Patient Tobacco Use Status: Former Tobacco user e-Cigarette/Vaping Use: Never Used Second Hand Smoke Exposure: Yes service: No Current occupational status: employed 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 1. Little interest or pleasure in doing things: not at all 2. Feeling down, depressed, or hopeless: not at all 3. Trouble falling or staying asleep, or sleeping too much: not at all 4. Feeling tired or having little energy: not at all 5. Poor appetite or overeating: not at all 6. Feeling bad about yourself - or that you are a failure or have let yourself or your family down: not at all 7. Trouble concentrating on things, such as reading the newspaper or watching television: not at all 8. Moving or speaking so slowly that other people could have noticed. Or the opposite - being so fidgety or restless that you have been moving around a lot more than usual: not at all 9. Thoughts that you would be better off or of hurting yourself in some way: not at all Total score: 0 Depression Screening Interpretation: Negative Depression Screening Done: Yes Source: Developed by Drs. Krunal Wang, Gabby Nolasco, Aaron Nguyen and colleagues, with an educational jhonatan from [employer]. Thrive Questionnaire Date Thrive assessed: 03/09/25 I am a: Patient What is your living situation today?: I have a steady place to live Within the past 12 months, did the food you bought not last and you didn't have the money to get more?: Never true Within the past 12 months, did you worry whether your food would run out before you got money to buy more?: Never true Do you have trouble paying for medicines?: No Do you have trouble getting transportation to medical appointments?: No Do you have trouble paying your heating and electricity bill?: No Do you have trouble taking care of your child, family member or friend?: No Do you have trouble with day-to-day activities such as bathing, preparing meals, shopping, managing finances, etc.?: No Are you currently unemployed and looking for a job?: No Are you interested in more education?: No Please select the resources that you would like help with: None Currently or been in a relationship where the following occur: No concerns reported THRIVE Score: 0 AUDIT C Alcohol Use Questionnaire (AUDIT-C) 1. How often do you have a drink containing alcohol?: Monthly or less Total Score: 1 SHRUTHI-7 AMB Questionnaire SHRUTHI-7 Date SHRUTHI - 7 assessed: 03/09/25 Feeling nervous, anxious, or on edge: 0 = Not at all Not being able to stop or control worryin = Not at all Worrying too much about different things: 0 = Not at all Trouble relaxin = Not at all Being so restless that it is hard to sit still: 0 = Not at all Becoming easily annoyed or irritable: 0 = Not at all Feeling afraid as if something awful might happen: 0 = Not at all Total SHRUTHI-7 score (0-4 normal; 5-9 mild; 10-14 moderate; 15-21 severe): 0 Source: Developed by Drs. Krunal Wang, Gabby Nolasco, Aaron Nguyen and colleagues, with an educational jhonatan from [employer]. Physical exam (Primary Care) Vital Signs: Last Vital Signs Temp 97.3 F 09/07/25 15:47 Pulse 72 09/07/25 15:47 BP 120/80 09/07/25 15:47 Pulse Ox 99 09/07/25 15:47 Oxygen Delivery Method Room Air 09/07/25 15:47 BMI result Body Mass Index 23.9 Tobacco/Smoking Status: Tobacco use Status Tobacco use date assessed 09/07/25 09/07/25 15:51 Patient Tobacco Use Status Former Tobacco user 09/07/25 15:51 e-Cigarette/Vaping Use Never Used 09/07/25 15:51 PHQ-9: PHQ-9 Score PHQ-9: Total score 0 09/07/25 15:51 Depression Screening Interpretation: Negative Thrive Assessment: Date of Thrive Assessment Date Thrive assessed 03/09/25 09/07/25 15:51 Currently or been in a relationship where the following occur: No concerns reported Coding Level of Care Code Est Pt Level 4 (50723) Complex EM visit Add On G2211 Diagnoses Chronic kidney disease, stage 3 N18.30 Assessment & Plan Assessment & Plan (1) Chronic kidney disease, stage 3: Code(s): N18.30 - Chronic kidney disease, stage 3 unspecified Category: Medical Plan: History of Present Illness - The patient is a 40-year-old male presenting for management of polycystic kidney disease and renal insufficiency. - Polycystic Kidney Disease: Previously on Tolvaptan, now switched to a generic due to cost issues, but the medication is not effective as kidney function is at 20%. - The patient is being evaluated for a kidney transplant at [facility], having attended an educational course and awaiting further screening. - Preventative care: Plans to receive an influenza vaccination at work. 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 - Functional status: The patient reports being able to function and work despite health issues. Review of Systems - General: Reports fatigue, denies abdominal pain. Physical Exam General: Cooperative and healthy appearing Nutritional Appearance: Well nourished Orientation/consciousness: Patient oriented x3 Limitations: No limitations Head: Normal to inspection General: Appearance normal, both eyes and all related structures Neck: Normal visual inspection Chest: Normal palpation of entire chest wall Respiratory: N ormal respiratory effort Neurology: Patient oriented x3, appears fatigued, eyes appear pale Results Plan - Continue with the current generic medication for polycystic kidney disease. - Proceed with kidney transplant evaluation and screening at [facility]. - Plan to receive an influenza vaccination at work. - Consider FMLA for work due to health issues, with the option for paid leave through [employer] program. Discussion Notes I discussed with the patient the current management of his polycystic kidney disease, including the switch to a generic medication and its limited efficacy at this stage. We reviewed the process for kidney transplant evaluation at [facility], including the educational course he attended and the upcoming screenings. I explained the FMLA options available to him, emphasizing the benefits of [employer] paid leave program. We also discussed the importance of receiving an influenza vaccination, which he plans to obtain at work. Patient Instructions - Continue taking the prescribed generic medication for kidney disease. - Attend all scheduled appointments for kidney transplant evaluation. - Get the flu shot at work as planned. - Consider applying for FMLA if health issues impact work.
[2025-09-07 15:47] VITALS: BP 120/80; PULSE 72; TEMP 36.3; O2SAT 99; BMI 23.9
--- OUTSIDE RECORDS SUMMARY | 2025-09-07 19:14 | XMS_ITS | Encounter Summary ---
Author Organization [facility] Address [address] [place] [phone] Phone Care Team Providers Care Hop Trainer Name Role Phone Asad Scott MD Primary Care Provider + Encounter Details Date Type Department Care Team (Late Contact Info) Description 07/26/2025 Office Communication [facility] [address] [address] Buster Cordero MD [facility] [address] [address] Social History Tobacco Use Types [...] EST Office Visit [facility] [place] [id number] [address] Roxana Reveles ARNP [address] [address] documented as of this encounter Visit Diagnoses Not on filedocumented in this encounter Care Teams Hop Trainer Relationship Specialty Start Date End Date Asad Scott MD [address] , [facility] [address] [place] [address] PCP - General Internal Medicine 06/24/22 documented as of this encounter
--- OUTSIDE RECORDS SUMMARY | 2025-09-07 19:14 | XMS_ITS | Clinical Summary ---
Author Organization [facility] Address [address] [place] [phone] Phone Care Team Providers Care Raw Stock Machine Loader Name Role Phone Asad Scott MD Primary [...] Office Communication [facility] [address] [address] Hillary Calloway MA 08/09/2025 Refill [facility] [address] [address] Hillary Calloway MA 08/09/2025 Refill [facility] [address] [address] Hillary Calloway MA 07/26/2025 Office Communication [facility] [address] [address] Buster Cordero MD 07/24/2025 4:00 PM EDT Office Visit [facility] [address] [address] Buster Cordero MD Chronic kidney disease, stage 4 (severe) (HCC) (Primary Dx); Adult polycystic kidney; Essential hypertension 07/14/2025 Office Communication [facility] [address] [address] Génesis Canela 07/13/2025 Refill [facility] [address] [address] [place], [facility] 07/10/2025 Office Communication [facility] [address] [address] Roxana Reveles ARNP 07/10/2025 Orders Only [facility] [address] [address] Roxana Reveles ARNP Secondary hyperparathyroidism of renal origin (HCC) (Primary Dx) 07/10/2025 Orders Only [facility] [address] [address] Roxana Reveles ARNP 07/07/2025 Refill [facility] [address] [address] [facility], [facility] 07/07/2025 Refill [facility] [address] [address] [facility] Ref[facility] [address] [address] Bell, [facility] 06/22/2025 Refill [facility] [address] [address] Martha Campos MA 06/16/2025 Orders Only [facility] [address] [address] Roxana Reveles ARNP Stage 3b chronic kidney [...] Visit [facility] [address] [address] Roxana Reveles ARNP [address] [phone] Health Maintenance Due Date Last Done Comments [...] EDT 07/10/2025 10:53 AM EDT Roxana Reveles [facility] LAB URINE ORDERABLES Final Result [place] See order comments [place] [address] * (ABNORMAL) Albumin, urine, random (07/10/2025 10:53 [...] 3 AM EDT 07/10/2025 10:53 AM EDT [employer] [facility] LAB URINE ORDERABLES Final Result Performing Organization Address City/[facility] Co de Phone Number [place] See order comments [place] [address] * (ABNORMAL) Creatinine (07/10/2025 10:45 AM EDT) Creatinine Serum 3.26(H) 0.5 - 1.4 mg/dL See order comments eGFR (Calc) 21 See orde r comments Comment: Chronic Kidney Disease: Estimated GFR < 60 mL/min/1.73m2 Severe Kidney Disease: Estimated GFR < 15 mL/min/1.73m2 07/10/2025 10:4 5 AM EDT 07/10/2025 10:45 AM EDT [facility] LAB BLOOD ORDERABLES Final Result Performing Organization Address [facility] Co de Phone Number [place] See order comments [place] [address] * (ABNORMAL) PTH, Intact (07/10/2025 10:45 AM EDT) Parathyroid Hormone, Intact 658.2(H) 8.7 - 77.1 pg/mL See order comments 07/10/2025 10:4 5 AM EDT 07/10/2025 10:45 AM EDT [facility] LAB HISTORICAL-CONVERSIONS- UNSOLICITED RESULTS Final Result Performing Organization Address City/[facility] Co de Phone Number [place] See order comments [place] [address] * (ABNORMAL) CBC and Differential (07/10/2025 10:45 [...] 07/10/2025 10:45 AM EDT us Roxana Abdirizak SENIOR MECHANICAL DESIGNER LAB BLOOD ORDERABLES Final Result [place] See order comments [place] [address] * (ABNORMAL) BUN (07/10/2025 10:45 AM EDT) BUN 47(H) 9 - 16 mg/dL See order comments 07/10/2025 10:4 5 AM EDT 07/10/2025 10:45 AM EDT [facility] LAB BLOOD ORDERABLES Final Result Performing Organization Address [facility] Phone Number [place] See order comments [place] [address] * Magnesium (07/10/2025 10:45 AM EDT) Magnesium 1.8 1.6 - 2.6 mg/dL See order comments Blood Venous blood / Unknown 07/10/2025 10:45 AM EDT 07/10/2025 10:45 AM EDT [facility] LAB BLOOD ORDERABLES Final Result Performing Organization Address [facility] Phone Number [place] See order comments [place] [address] * (ABNORMAL) Calcium (07/10/2025 10:45 AM EDT) Pathologist [facility] Calcium 8.2(L) 8.4 - 10.2 mg/dL See order comments 07/10/2025 10:4 5 AM EDT 07/10/2025 10:45 AM EDT [facility] LAB BLOOD ORDERABLES Final Result Performing Organization Address [facility] Phone Number [place] See order comments [place] [address] * (ABNORMAL) Electrolyte panel (07/10/2025 10:45 AM [...] order comments [place] [address] from Last 3 Months Insurance Care Teams Raw Stock Machine Loader Relationship Specialty Start Date End Date Asad Scott MD [facility] [address] [place] [address] [place] [address] PCP - General Internal Medicine 06/24/22
--- OUTSIDE RECORDS SUMMARY | 2025-09-07 19:14 | XMS_ITS | Encounter Summary ---
Author Organization [facility] Address [address] [phone] Phone Care Team Providers Care [employer] Flatbed Driver Name Role Phone Asad Scott MD Primary Care Provider + Reason for Visit * Reason Comments Med Refill Encounter Details Date Type Department Care Team (Late Contact Info) Description 01/31/2025 Refill [facility] [address] [phone] Marcelo Naylor MD [address] [phone] Social History Tobacco Use Types [...] EST Office Visit [facility] [address] [phone] Roxana Reveles ARNP [address] [address] documented as of this encounter Visit Diagnoses Not on filedocumented in this encounter Care Teams [employer] Flatbed Driver Relationship Specialty Start Date End Date Asad Scott MD [address] [address] PCP - General Internal Medicine 06/24/22 documented as of this encounter
--- OUTSIDE RECORDS SUMMARY | 2025-09-07 19:14 | XMS_ITS | Encounter Summary ---
Author Organization [facility] [place] Address [address] [address] Phone Care Team Providers Care Lamp Shades Supervisor Name Role Phone Asad Scott MD Primary Care Provider + Encounter Details Date Type Department Care Team (Latest Contact Info) Description 05/02/2024 Office Communication [facility] [place] [address] [address] Buster Cordero MD [address] [phone] Stage 3b chronic kidney disease (HCC) (Primary [...] [facility] [address] [phone] Roxana Reveles ARNP [address] [address] Scheduled Orders Name Type Priority [...] disease documented in this encounter Care Teams Lamp Shades Supervisor Relationship Specialty Start Date End Date Asad Scott MD [address] [facility] [address] [place] [address] PCP - General Internal Medicine 06/24/22 documented as of this encounter
--- OUTSIDE RECORDS SUMMARY | 2025-09-07 19:14 | XMS_ITS | Encounter Summary ---
Author Organization [facility] [place] Address 100 [facility] [address] [place] [address] Phone Care Team Providers Care Personnel Arbitrator Name Role Phone Asad Scott MD Primary Care Provider + Reason for Visit * Reason Comments Med Refill Encounter Details Date Type Department Care Team (Late Contact Info) Description 06/30/2022 Refill [facility] 100 [place] [address] [place] [address] Buster Cordero MD [address] [address] Social History Tobacco Use Types [...] [facility] [address] [address] Roxana Reveles ARNP [address] [address] documented as of this encounter Visit Diagnoses Not on filedocumented in this encounter Care Teams Personnel Arbitrator Relationship Specialty Start Date End Date Asad Scott MD [address] , [facility] [address] [place], [place] [id number] PCP - General Internal Medicine 06/24/22 documented as of this encounter
== END 2025-09-07 16:09 | disposition home or self-care (01) ==
LOC: HO.HMCH 15:37
PROVIDERS: PCP Internal Medicine; Visit Provider Internal Medicine
DX: N18.30 Chronic kidney disease, stage 3 unspecified (principal)